=== PATIENT | male | born 1985 | race Caucasian/White ===

== ENCOUNTER 2021-10-16 17:55 | Emergency (ER) | payer OTHER, SELFPAY ==
--- NOTE | ~2021-10-16 | XR_ITS ---
EXAMINATION: XR CHEST CLINICAL INFORMATION: Shortness of breath COMPARISON: 06/07/2011 TECHNIQUE: 2 views of the chest were obtained. FINDINGS: Opacity in the right midlung laterally. Consistent with infiltrate. I suspect this is the right upper lobe. There is also mild left basilar opacity which may be atelectasis or infiltrate. There is no effusion. Low lung volumes. The cardiac silhouette is within normal limits. XR/XR chest 2V IMPRESSION: Right midlung infiltrate and atelectasis or infiltrate at the left base.
[2021-10-16 18:01] VITALS: BP 111/81; PULSE 116; RESP 18; TEMP 36.6; O2SAT 95; BMI 32.2
--- NOTE | 2021-10-16 18:37 | ECG_ITS ---
Test Reason : CHEST PAIN Blood Pressure : / mmHG Vent. Rate : 099 BPM Atrial Rate : 099 BPM P-R Int : 116 ms QRS Dur : 088 ms QT Int : 398 ms P-R-T Axes : 054 043 057 degrees QTc Int : 510 ms Normal sinus rhythm Nonspecific T wave abnormality Prolonged QT Abnormal ECG No previous ECGs available Referred By: Deondre Ford Electronically Signed By:SARKIS MORROW
--- NOTE | 2021-10-16 18:37 | ED.GENADULT ---
HPI - General Adult General Chief complaint: General Medical Stated complaint: whole body swollen/SOB Time Seen by Provider: 10/16/21 18:16 Source: patient Mode of arrival: ambulatory Limitations: no limitations History of Present Illness HPI narrative: 36-year-old male who presents emergency department for evaluation chest pain, shortness of breath, dyspnea on exertion x2 weeks. The patient has a history of injection drug use. States that 3 weeks prior he was seen at [facility] and diagnosed with multiple abscesses these and cellulitis in his arms and legs. He states that he did not get started on antibiotics at that time but 1 week later (2 weeks prior to evaluation) he was at [facility] for detox from heroin and cocaine use. He states that he was initially started on Bactrim for 1 week and then changed to his 2nd antibiotic which she cannot recall the name of. He believes that the abscesses and cellulitis have improved but have not resolved completely. He states however over the past 2 weeks he has noted shortness of breath at rest, orthopnea, paroxysmal nocturnal and dyspnea and dyspnea on exertion. He states that the dyspnea on exertion has gotten worse to the point where he can only walk 10 to 20 ft before he gets winded. Over the past 2 days he has had intermittent left-sided chest pain. He states that the chest pain can come on at rest or with exertion. The pain is a sharp pain that will last minutes. He states that yesterday he did developed an episodes of subjective fever and chills. He denied rhinorrhea, sore throat, cough, nausea, vomiting, diarrhea, abdominal pain, change in his urinary frequency, dysuria, dark stools or bloody stools. The patient states that he is not used injection drugs for 3 weeks. He states that he is currently receiving methadone 205 mg daily. Prior to starting on methadone he was using 40 bags of heroin mixed with cocaine multiple times a day. He has not been vaccinated for COVID-19. He states that he was incarcerated for 100 days but got out of detention approximately 3 months prior. Related Data Previous Rx's Medication Instructions Recorded divalproex 500 mg tablet,delayed 1,500 mg PO .nightly 30 Days #90 10/16/21 release (Depakote) tab furosemide 40 mg tablet (Lasix) 60 mg PO DAILY 30 Days #45 tab 10/16/21 Allergies Allergy/AdvReac Type Severity Reaction Status Date / Time No Known Allergies Allergy Unverified 04/02/20 15:46 Review of Systems Review of Systems: Yes all other systems are reviewed and are negative [facility] Past Medical History [facility] Narrative: Past medical history: Injection drug use (heroin and cocaine). Past surgical history: None. Social history: The patient smokes 2 packs of cigarettes per day times 20 years. He occasionally drinks alcohol. He does have a history of injection drug use, he used 40 bags of heroin per day mixed with cocaine. He has not used in 3 weeks. He is currently receiving methadone 205 mg daily. He was incarcerated for 100 days and was released 3 months prior. Social History Social History Use of substances other than those prescribed or required for medical reasons: Yes Substance Use Type: Heroin Substance Use Frequency: Daily Last Used Substance: Days (ago) Any prior treatment program specific to substance use: Yes Advance Directives: No Advance Directives Information Provided: No Physical Exam ED Vital Signs: Vital Signs - 24 hr 10/16/21 18:01 Temperature 97.8 F Pulse Rate 116 H Respiratory Rate 18 Blood Pressure 111/81 Pulse Oximetry 95 BMI result Body Mass Index 32.2 Const Other: Very pleasant and cooperative male patient, he is awake and alert, he answers all questions appropriately, he does not appear to be in distress. [facility] Head: Yes normal to inspection, Yes normocephalic and Yes atraumatic Ears: external ears normal General nose exam: Normal external nose present Face and sinus: Yes normal facial exam Mouth: Normal oral and palatal mucosa present Throat: Yes posterior oropharynx normal Eyes General: appearance normal, both eyes and all related structures Pupils: Equal, round and reactive pupils present Neck Neck: Yes normal visual inspection, Yes no lymphadenopathy, Yes trachea midline and Yes supple Chest Chest palpation & inspection: normal inspection of the chest and tenderness costochondral junction (Anterior chest) Resp Effort & Inspection: normal respiratory effort and able to speak in complete sentences Auscultation: clear to auscultation bilaterally Cardio Rate: regular rate Rhythm: regular rhythm Heart sounds: S1 normal heart sound present, S2 normal heart sound present and no murmurs GI Inspection: Yes normal to inspection Palpation (GI): Soft to palpation, nontender and no guarding Auscultation: normal bowel sounds General: Yes no CVA tenderness Back/Spine/Pelvis Back: no CVA tenderness Skin General skin exam: no rashes or lesions noted Neuro Cranial nerves: Yes CN's II-XII intact bilaterally and Yes Equal, round and reactive pupils present Cognition (Neuro): normal cognition Motor exam (neuro): 5/5 motor strength present throughout Extrem Other: The patient does have nonpitting swelling of his hands and forearms with multiple track deal, there are multiple small areas erythema on his upper and lower extremities which are not warm to the touch. The patient does have 1+ pitting edema to his lower extremities which are bilaterally symmetric. Psych Appearance: grossly normal Speech and movement: Normal speech and movement present Affect: normal affect Attitude: cooperative Thought process: Normal thought process present Thought content: Normal thought content present Course Course Course Narrative: 36-year-old male with a history of injection drug use (heroin and cocaine) who was recently in detox and is currently on methadone 205 mg daily, he has not used injection drugs for 3 weeks, who presents to the emergency department for evaluation of shortness of breath, orthopnea, dyspnea on exertion, swelling of his lower extremities x2 weeks and subjective fever and chills x1 day. Vital signs did reveal an elevated pulse of 116 otherwise were unremarkable. Patient does have upper extremity swelling but I think that this is due to venous compromise from his injection drug use. He does have 1+ pitting edema of his lower extremities. Patient's symptoms are concerning and the differential includes but is not limited to cardiomyopathy, coronary artery disease, liver failure, renal failure, infectious process. I did order a CBC, CMP, BMP, CRP, ESR, CK, lipase, lactic acid, troponin, urinalysis, blood cultures x2. I will obtain an EKG and a chest x-ray. 212: Laboratory evaluation: WBC low 4500, anemia with an H&H of 11.3 and 34.5 with a normal MCV. CMP was normal. BMP was normal. Elevated CK 491, CRP elevated 1.10, ESR normal 7. Twelve EKG was unremarkable. Radiology evaluation: Chest x-ray was interpreted by the radiologist as follows: Right midlung infiltrate and atelectasis or infiltrate at the left base. I do not think that this is consistent with pneumonia and is probably more consistent with mild pulmonary edema based on his presentation. The patient is most likely fluid overloaded, he may also have cardiomyopathy and will probably need further workup as an outpatient . The patient will be started on furosemide 60 mg once a day. I did discuss the use of this medication and how toachieve a negative fluid balance. He will be referred to our on-call african history professor as well. Patient also needs a refill of his Depakote. Medical Decision Making Lab Data Result diagrams: 10/16/21 19:09 10/16/21 19:09 Labs: Lab Results 10/16/21 10/16/21 10/16/21 Range/Units 19:09 19:09 19:09 WBC 4.5 L (4.8-10.8) X10*3/uL RBC 3.94 L (4.60-5.80) X10*6/uL Hgb 11.3 L (14.0-18.0) g/dl Hct 34.5 L (42.0-52.0) % MCV 87.6 (80.0-98.0) fL MCH 28.7 (27.0-33.0) pg MCHC 32.8 (31.0-36.0) g/dl RDW 14.1 (11.0-16.0) % Plt Count 183 (160-400) X10*3/uL MPV 9.7 (9.4-12.4) fL Immature Gran % (Auto) 0.2 (0.0-0.4) % Neut % (Auto) 56.6 (45-73) % Lymph % (Auto) 30.2 (20-40) % [place] % (Auto) 8.6 (2-11) % Eos % (Auto) 4.2 H (0-4) % Baso % (Auto) 0.2 (0-2) % Lymph # (Auto) 1.4 (1.2-4.9) X10*3/uL [place] # (Auto) 0.4 (0.1-1.2) X10*3/uL Eos # (Auto) 0.2 (0.0-0.4) X10*3/uL Baso # (Auto) 0.0 (0.0-0.2) X10*3/uL Abs Immat Gran (auto) 0.01 (0.00-0.03) X10*3/uL Absolute Neuts (auto) 2.6 (2.0-8.3) x10*3/uL Absolute Nucleated RBC 0.000 (0.0-0.012) X10*3/uL Nucleated RBC % (auto) 0.0 (0.0-0.2) /100WBC ESR (0-15) MM/HR Sodium 143 (135-145) mmol/L Potassium 4.1 (3.3-5.1) mmol/L Chloride 108 (96-108) mmol/L Carbon Dioxide 25 (22-29) mmol/L Anion Gap 14 (12-20) BUN 16 (9-16) mg/dL Creatinine 0.97 (0.5-1.4) mg/dL Estim Creat Clear Calc 136.1 Estimated GFR > 60 Random Glucose 86 (60-115) mg/dL Lactic Acid 1.6 (0.5-2.0) mmol/L Calcium 9.1 (8.4-10.2) mg/dL Total Bilirubin 0.5 (0.0-1.0) mg/dL AST 28 (5-37) U/L ALT 29 (0-40) U/L Alkaline Phosphatase 58 (39-117) U/L Total Creatine Kinase (38-174) U/L Troponin I High Sens (<3.5-35.0) ng/L C-Reactive Protein (< or = 0.50) mg/dL B-Natriuretic Peptide (<100) pg/mL Total Protein 7.0 (6.5-8.0) g/dL Albumin 4.0 (3.5-5.0) g/dL Lipase 30 (8-78) U/L 10/16/21 10/16/21 10/16/21 Range/Units 19:09 19:09 19:09 WBC (4.8-10.8) X10*3/uL RBC (4.60-5.80) X10*6/uL Hgb (14.0-18.0) g/dl Hct (42.0-52.0) % MCV (80.0-98.0) fL MCH (27.0-33.0) pg MCHC (31.0-36.0) g/dl RDW (11.0-16.0) % Plt Count (160-400) X10*3/uL MPV (9.4-12.4) fL Immature Gran % (Auto) (0.0-0.4) % Neut % (Auto) (45-73) % Lymph % (Auto) (20-40) % Ciales % (Auto) (2-11) % Eos % (Auto) (0-4) % Baso % (Auto) (0-2) % Lymph # (Auto) (1.2-4.9) X10*3/uL [place] # (Auto) (0.1-1.2) X10*3/uL Eos # (Auto) (0.0-0.4) X10*3/uL Baso # (Auto) (0.0-0.2) X10*3/uL Abs Immat Gran (auto) (0.00-0.03) X10*3/uL Absolute Neuts (auto) (2.0-8.3) x10*3/uL Absolute Nucleated RBC (0.0-0.012) X10*3/uL Nucleated RBC % (auto) (0.0-0.2) /100WBC ESR 7 (0-15) MM/HR Sodium (135-145) mmol/L Potassium (3.3-5.1) mmol/L Chloride (96-108) mmol/L Carbon Dioxide (22-29) mmol/L Anion Gap (12-20) BUN (9-16) mg/dL Creatinine (0.5-1.4) mg/dL Estim Creat Clear Calc Estimated GFR Random Glucose (60-115) mg/dL Lactic Acid (0.5-2.0) mmol/L Calcium (8.4-10.2) mg/dL Total Bilirubin (0.0-1.0) mg/dL AST (5-37) U/L ALT (0-40) U/L Alkaline Phosphatase (39-117) U/L Total Creatine Kinase 491 H (38-174) U/L Troponin I High Sens < 3.5 (<3.5-35.0) ng/L C-Reactive Protein 1.10 H (< or = 0.50) mg/dL B-Natriuretic Peptide 84 (<100) pg/mL Total Protein (6.5-8.0) g/dL Albumin (3.5-5.0) g/dL Lipase (8-78) U/L Discharge Plan Discharge Clinical Impression: Acute dyspnea, Orthopnea, Edema, peripheral Fluid overload Qualifiers: Hypervolemia type: unspecified Qualified Code(s): E87.70 - Fluid overload, unspecified Patient Disposition: Home, Self-Care Instructions: Pulmonary Edema (ED), Fluid Restriction (ED) Additional Instructions: Your white blood cell count was slightly low at 4500. You are anemic with your hemoglobin being 11.3 and 34.5. Otherwise your laboratory evaluation was unremarkable. Your EKG was normal. Your chest x-ray did reveal some slight fluid in your lungs and this is consistent with you having too much fluid on your body being fluid overloaded. I am starting you on a water pill/diuretic called Lasix (furosemide) Take Lasix 60 mg once a day in the morning. This medication will make you pee for about 6 hours. The goal is to get you to pee out more fluid than you or drinking and you will lose fluid weight. Weigh yourself every morning and the goal is to lose 3-4 lb of fluid weight over the next 1-2 weeks. Please follow-up with a primary care doctor. Please call our on-call african history professor, Dr. Valencia's office on Monday morning to try to make a follow-up appointment in 1-2 weeks. I think that you need an echocardiogram of your heart as an outpatient to further evaluate your symptoms of shortness of breath shortness of breath with exertion and shortness of breath when you lie down flat. Follow-up with your doctor in 2 days. Please return to the emergency department if your symptoms get worse or if you develop any symptoms that are concerning to you. Prescriptions: New furosemide [Lasix] 40 mg tablet 60 mg PO DAILY 30 Days Qty: 45 0RF divalproex [Depakote] 500 mg tablet,delayed release (DR/EC) 1,500 mg PO .nightly 30 Days Qty: 90 0RF
[2021-10-16 19:16] LABS: MANUAL DIFF FLAG NO
[2021-10-16 19:21] LABS: Basophils Percent Auto 0.2 % (0-2); Eosinophils Absolute Auto 0.2 X10*3/uL (0.0-0.4); Eosinophils Percent Auto 4.2 % (0-4); Hematocrit 34.5 % (42.0-52.0); Hemoglobin 11.3 g/dl (14.0-18.0); Imm Gran Abs Auto 0.01 X10*3/uL (0.00-0.03); Imm Gran Pct Auto 0.2 % (0.0-0.4); Lymphocytes Absolute Auto 1.4 X10*3/uL (1.2-4.9); Lymphocytes Percent Auto 30.2 % (20-40); Mean Corpuscular HGB Conc 32.8 g/dl (31.0-36.0); Mean Corpuscular Hemoglobin 28.7 pg (27.0-33.0); Mean Corpuscular Volume 87.6 fL (80.0-98.0); Mean Platelet Volume 9.7 fL (9.4-12.4); Monocytes Absolute Auto 0.4 X10*3/uL (0.1-1.2); Monocytes Percent Auto 8.6 % (2-11); Neutrophils Absolute Auto 2.6 x10*3/uL (2.0-8.3); Neutrophils Percent Auto 56.6 % (45-73); Platelet Count 183 X10*3/uL (160-400); Red Blood Count 3.94 X10*6/uL (4.60-5.80); Red Cell Distribution Width 14.1 % (11.0-16.0); White Blood Count 4.5 X10*3/uL (4.8-10.8)
[2021-10-16 19:32] LABS: Lactic Acid 1.6 mmol/L (0.5-2.0)
[2021-10-16 19:38] LABS: Alanine Aminotransferase 29 U/L (0-40); Alkaline Phosphatase 58 U/L (39-117); Anion Gap 14 (12-20); Aspartate Amino Transferase 28 U/L (5-37); Bilirubin Total 0.5 mg/dL (0.0-1.0); Blood Urea Nitrogen 16 mg/dL (9-16); Calcium 9.1 mg/dL (8.4-10.2); Carbon Dioxide 25 mmol/L (22-29); Chloride 108 mmol/L (96-108); Creatinine Clr Calc Pharmacy 136.1; Estimated Glomerular Filt Rate > 60; Glucose Random 86 mg/dL (60-115); Lipase 30 U/L (8-78); Potassium 4.1 mmol/L (3.3-5.1); Sodium 143 mmol/L (135-145)
[2021-10-16 19:41] LABS: B Type Natriuretic Peptide 84 pg/mL (<100); Troponin-I High Sensitivity < 3.5 ng/L (<3.5-35.0)
[2021-10-16 20:04] LABS: Erythrocyte Sedimentation Rate 7 MM/HR (0-15)
== END 2021-10-16 21:45 | disposition home or self-care (01) ==
PROVIDERS: Emergency Provider Emergency Medicine Emergency Medical Services
DX: R06.02 Shortness of breath (principal); R06.01 Orthopnea; E87.70 Fluid overload, unspecified; R60.0 Localized edema; F11.20 Opioid dependence, uncomplicated; F17.200 Nicotine dependence, unspecified, uncomplicated
CPT/HCPCS: 36415; 71046; 80053; 82550; 83605; 83690; 83880; 84484; 85025; 85652; 86140; 87040; 93005; 99284

== ENCOUNTER 2023-01-27 09:07 | Outpatient (REF) | payer OTHER, SELFPAY ==
[2023-01-27 11:25] LABS: MANUAL DIFF FLAG NO
[2023-01-27 11:42] LABS: Basophils Percent Auto 0.7 % (0-2); Eosinophils Absolute Auto 0.2 X10*3/uL (0.0-0.4); Eosinophils Percent Auto 3.8 % (0-4); Hematocrit 41.3 % (42.0-52.0); Hemoglobin 13.7 g/dl (14.0-18.0); Imm Gran Abs Auto 0.01 X10*3/uL (0.00-0.03); Imm Gran Pct Auto 0.2 % (0.0-0.4); Lymphocytes Absolute Auto 2.3 X10*3/uL (1.2-4.9); Lymphocytes Percent Auto 55.5 % (20-40); Mean Corpuscular HGB Conc 33.2 g/dl (31.0-36.0); Mean Corpuscular Hemoglobin 30.7 pg (27.0-33.0); Mean Corpuscular Volume 92.6 fL (80.0-98.0); Mean Platelet Volume 10.6 fL (9.4-12.4); Monocytes Absolute Auto 0.4 X10*3/uL (0.1-1.2); Monocytes Percent Auto 9.1 % (2-11); Neutrophils Absolute Auto 1.3 x10*3/uL (2.0-8.3); Neutrophils Percent Auto 30.7 % (45-73); Platelet Count 150 X10*3/uL (160-400); Red Blood Count 4.46 X10*6/uL (4.60-5.80); Red Cell Distribution Width 13.2 % (11.0-16.0); White Blood Count 4.2 X10*3/uL (4.8-10.8)
[2023-01-27 13:04] LABS: Alanine Aminotransferase 56 U/L (0-40); Albumin Level 3.7 g/dL (3.5-5.0); Alkaline Phosphatase 133 U/L (39-117); Anion Gap 12 (12-20); Aspartate Amino Transferase 60 U/L (5-37); Bilirubin Total 0.7 mg/dL (0.0-1.0); Blood Urea Nitrogen 12 mg/dL (9-16); Carbon Dioxide 26 mmol/L (22-29); Chloride 106 mmol/L (96-108); Cholesterol 228 mg/dL; Estimated Glomerular Filt Rate > 60; Glucose Random 81 mg/dL (60-115); HDL Cholesterol 49 mg/dL; LDL Cholesterol Calculated 108 mg/dl; Potassium 4.2 mmol/L (3.3-5.1); Sodium 140 mmol/L (135-145); Total Protein 7.2 g/dL (6.5-8.0); Triglycerides 358 mg/dL
[2023-01-27 13:08] LABS: Thyroid Stimulating Hormone 3.26 uIU/mL (0.32-4.0)
== END 2023-01-27 09:08 | disposition home or self-care (01) ==
LOC: HO.HHCL 09:07
PROVIDERS: Visit Provider Internal Medicine
DX: Z00.00 Encounter for general adult medical examination without abnormal findings (principal); E66.9 Obesity, unspecified; F31.9 Bipolar disorder, unspecified; I10 Essential (primary) hypertension; Z72.0 Tobacco use; Z79.891 Long term (current) use of opiate analgesic
CPT/HCPCS: 36415; 80053; 80061; 84443; 85025

== ENCOUNTER 2023-02-13 13:10 | Outpatient (AMB) | payer OTHER, SELFPAY ==
[2023-02-13 13:22] VITALS: BP 117/78; PULSE 92; BMI 37.0
--- NOTE | 2023-02-13 13:22 | MHC.OFFVIS ---
Intake Vital Signs 02/13/23 13:22 Height 5 ft 11 in Weight 265 lb BMI 37.0 BP 117/78 Blood Pressure Location Rt brachial Position Sitting Pulse 92 Intake Visit Reasons: Sebaceous cyst of scalp Intake Note: Patient here for cyst on X2 on vertex scalp and Lt post scalp. Have been present for years. Recently noticed all have been enlarging. Finance Specialist Required: No Accompanied by: Self / Same As Patient Allergies No Known Allergies Allergy (Unverified 02/13/23 13:25) HPI HPI Comments History of Present Illness Details Patient presents for evaluation of 3 scalp once. He has had these indeterminate time. They are increasing in size, become more symptomatic. He wished to have them excised. Unfortunately, because were complications he cannot stay to have them removed today. No other issues or complaints. Chart was reviewed and patient evaluated [facility] Medical History (Updated 02/13/23 @ 13:27 by TANYA Kincaid) Large tonsils Surgical History (Updated 02/13/23 @ 13:34 by Esvin Warren MD) History of placement of ear tubes Social History (Updated 02/13/23 @ 13:28 by TANYA Kincaid) Alcohol intake: current Alcohol intake frequency: does not drink Tobacco use type: Cigarette Cigarettes Per Day: 20 Substance Use Type: Heroin Physical Exam Vital Signs: Last Vital Signs Pulse 92 02/13/23 13:22 BP 117/78 02/13/23 13:22 BMI result Body Mass Index 37.0 HEENT Other: Two large and 1 medium size scalp Aaliyah the 1st 2 vomiting the vertex measuring approximately 2 x 2 cm each of the 2 x 1 cm involving the left parietal area. No cervical periclavicular axillary adenopathy Assessment & Plan Assessment & Plan (1) Pilar cyst of scalp: Code(s): L72.11 - Pilar cyst Plan Risks, benefits, alternatives of excision of scalp Aaliyah x3 were reviewed with the patient included but not limited to bleeding, infection, recurrence, numbness, pain, scarring the patient wishes to proceed. Arrangements will be made for a day which is convenient for him. All questions were answered. Coding Level of Care Code New Pt Level 3 (87037) Diagnoses Pilar cyst of scalp L72.11
== END 2023-02-13 13:37 | disposition home or self-care (01) ==
PROVIDERS: PCP Internal Medicine; Referring Provider Internal Medicine; Visit Provider Surgery
DX: L72.11 Pilar cyst (principal)
CPT/HCPCS: 99203

== ENCOUNTER → 2023-02-13 13:10 | Outpatient (BNVA) | payer OTHER, SELFPAY | PROVIDERS: PCP Internal Medicine; Referring Provider Internal Medicine; Visit Provider Surgery | DX: L72.11 Pilar cyst (principal) | CPT/HCPCS: 99202 ==

== ENCOUNTER 2023-02-21 08:34 | Outpatient (REF) | payer OTHER, SELFPAY | END 2023-02-21 08:35 | disposition home or self-care (01) | LOC: HO.LNP 08:34 | PROVIDERS: PCP Internal Medicine; Visit Provider Surgery | DX: L72.11 Pilar cyst (principal); Z79.899 Other long term (current) drug therapy | CPT/HCPCS: 11423; 88304; 99212 ==

== ENCOUNTER 2023-02-21 08:34 | Outpatient (AMB) | payer OTHER, SELFPAY ==
--- NOTE | 2023-02-21 08:37 | MHC.OFFVIS ---
Intake Vital Signs 02/21/23 09:00 Height 5 ft 11 in Weight 267 lb BMI 37.2 BP 121/65 Blood Pressure Location Rt brachial Position Sitting Pulse 92 Intake Visit Reasons: Scalp cysts X3 Controls Project Engineer Required: No Accompanied by: Self / Same As Patient Allergies No Known Allergies Allergy (Unverified 02/21/23 09:01) Medication List - Last Reconciled 02/21/23 by Esvin Warren MD divalproex (Depakote) 1,500 mg (3 x 500 mg) PO .nightly 30 days furosemide (Lasix) 60 mg (1.5 x 40 mg) PO DAILY 30 days methadone (Methadone Intensol) 2.5 mg PO Q6H HPI HPI Comments History of Present Illness Details Patient presents for excision of his scalp once. Patient was seen last week. Risks, benefits, alternatives of scalp Aaliyah excision x2 were reviewed the patient included but not limited to bleeding, infection, recurrence, numbness, pain, scarring the patient was to proceed. All questions were answered. [facility] Medical History (Updated 02/13/23 @ 13:27 by TANYA Kincaid) Large tonsils Surgical History (Updated 02/13/23 @ 13:34 by Esvin Warren MD) History of placement of ear tubes Social History (Updated 02/13/23 @ 13:28 by TANYA Kincaid) Alcohol intake: current Alcohol intake frequency: does not drink Tobacco use type: Cigarette Cigarettes Per Day: 20 Substance Use Type: Heroin Office Procedures Excision Details: After appropriate positioning, and pre marking the 2 scalp wounds 1 of the the vertex 1 left parietal area, patient underwent Betadine prep 1% lidocaine injection. Each cyst was approach with longitudinal incision and uneventful enucleation of the cyst. Specimens were sent to pathology together for evaluation. Each wound was irrigated, secured hemostasis, and closed using interrupted 2-0 Prolene followed by bacitracin. Patient tolerated procedure well. Cyst of vertex measured approximately3 x 2 cm. Left parietal measured approximately 2 x 1 Cm. Patient tolerated procedure well. 40266-[id number] scalp/neck/hands/feet/genitalia 2.1cm-3cm Procedure code (CPT) selection complete Office Meds lidocaine-epinephrine 1 %-1:100,000 Performing Provider: Esvin Warren MD Administered by: Esvin Warren MD on 02/21/23 08:59 Dose Route Admin Location Lot Number Expiration Date [employer] Fabricator Apprentice 10 mL Infiltration Assessment & Plan Assessment & Plan (1) Pilar cyst of scalp: Code(s): L72.11 - Pilar cyst Plan: Patient has been given local instructions including ice to wounds intermittently today and tomorrow, may shower tomorrow, Motrin p.r.n. and will see me as directed or p.r.n.. Orders: Orders AMB Excision Today L72.11 - Pilar cyst Coding Level of Care Code Est Pt Level 3 (80238) Diagnoses Pilar cyst of scalp L72.11 CPT Codes Scalp/Neck/Hands/Feet/Genetalia - CPT: 48217-Rdkcvglp scalp/neck/hands/feet/genitalia 2.1cm-3cm ([id number])
[2023-02-21 09:00] VITALS: BP 121/65; PULSE 92; BMI 37.2
== END 2023-02-21 09:00 | disposition home or self-care (01) ==
PROVIDERS: PCP Internal Medicine; Visit Provider Surgery
DX: L72.11 Pilar cyst (principal)
CPT/HCPCS: 11423; 11424; 99213

== ENCOUNTER 2023-03-02 08:51 | Outpatient (AMB) | payer OTHER, SELFPAY ==
[2023-03-02 09:06] VITALS: BP 121/78; PULSE 82; BMI 37.5
--- NOTE | 2023-03-02 09:06 | A.OFFVIS_ITS ---
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 4 sutures removed without incident. Incisions healing well. Patient advised he is okay to wash with soap and water. [employer] Driver Required: No Accompanied by: Self / Same As Patient Allergies No Known Allergies Allergy (Unverified 03/02/23 09:08) HPI HPI Comments History of Present Illness Details Patient presents for follow-up status post scalp Aaliyah excision x2. He has no wound issues or complaints. Pathology was benign. [facility] Medical History Large tonsils Surgical History History of placement of ear tubes Social History Alcohol intake: current Alcohol intake frequency: does not drink Tobacco use type: Cigarette Cigarettes Per Day: 20 Substance Use Type: Heroin Physical Exam Vital Signs: Last Vital Signs Pulse 82 03/02/23 09:06 BP 121/78 03/02/23 09:06 BMI result Body Mass Index 37.5 HEENT Other: Wounds well healed. Sutures uneventfully removed. Assessment & Plan Assessment & Plan (1) Pilar cyst of scalp: Code(s): L72.11 - Pilar cyst Plan Patient has been given local instructions, and will follow-up p.r.n. Coding Level of Care Code Global (59262) Diagnoses Pilar cyst of scalp L72.11
== END 2023-03-02 09:13 | disposition home or self-care (01) ==
LOC: HO.HGS 08:51
PROVIDERS: PCP Internal Medicine; Visit Provider Surgery
DX: L72.11 Pilar cyst (principal)
CPT/HCPCS: 99024

== ENCOUNTER → 2023-03-02 08:51 | Outpatient (BNVA) | payer OTHER, SELFPAY | PROVIDERS: PCP Internal Medicine; Visit Provider Surgery ==

== ENCOUNTER 2023-05-22 09:26 | Outpatient (REF) | payer OTHER, SELFPAY | END 2023-05-22 09:27 | disposition home or self-care (01) | LOC: HO.LNP 09:26 | PROVIDERS: PCP Internal Medicine; Visit Provider Surgery | DX: L72.11 Pilar cyst (principal) | CPT/HCPCS: 11423; 88304 ==

== ENCOUNTER 2023-05-22 09:26 | Outpatient (AMB) | payer OTHER, SELFPAY ==
[2023-05-22 09:33] VITALS: BP 123/83; PULSE 83; BMI 32.2
--- NOTE | 2023-05-22 09:33 | MHC.OFFVIS ---
Intake Vital Signs 05/22/23 09:33 Height 5 ft 11 in Weight 231 lb BMI 32.2 BP 123/83 Blood Pressure Location Rt brachial Position Sitting Pulse 83 Intake Visit Reasons: Pilar cyst of scalp Intake Note: patient c/o new cyst on Lt post scalp. States it has been enlarging, bothersome. Reports two prior cysts on scalp healed well. Cyanide Pot Hardener Required: No Accompanied by: Self / Same As Patient Allergies No Known Allergies Allergy (Unverified 05/22/23 09:35) Medication List - Last Reconciled 05/22/23 by Esvin Warren MD divalproex (Depakote) 1,500 mg (3 x 500 mg) PO .nightly 30 days furosemide (Lasix) 60 mg (1.5 x 40 mg) PO DAILY 30 days methadone (Methadone Intensol) 2.5 mg PO Q6H HPI HPI Comments History of Present Illness Details Patient presents with a new left occipital Pilar cyst/scalp Aaliyah. It is increasing in size, becoming more symptomatic. He wished to have it excised. He has had these in the past the excised by me. Chart was reviewed patient evaluated [facility] Medical History Large tonsils Surgical History History of placement of ear tubes Social History Alcohol intake: current Alcohol intake frequency: does not drink Tobacco use type: Cigarette Cigarettes Per Day: 20 Substance Use Type: Heroin Physical Exam Vital Signs: Last Vital Signs Pulse 83 05/22/23 09:33 BP 123/83 05/22/23 09:33 BMI result Body Mass Index 32.2 HEENT Other: Approximately 3 x 2 cm left occipital Pilar cyst Office Procedures Excision Details: Risks, benefits, alternatives of left occipital Pilar cyst reviewed the patient and included but not limited to bleeding, infection, recurrence, numbness, pain, scarring the patient wished to proceed. All questions were answered. Consent was signed. After appropriate positioning, the patient's left occipital area was prepped and draped in usual sterile fashion. Using a longitudinal incision over the Pilar cyst in question which measured approximately 3 x 2 cm. Was uneventfully enucleated. Specimen sent to pathology. Wounds irrigated, secured hemostasis, and closed using interrupted 2-0 Prolene suture followed by bacitracin. Patient tolerated procedure well. 47415-[id number] scalp/neck/hands/feet/genitalia 2.1cm-3cm Procedure code (CPT) selection complete Office Meds lidocaine 1 %-epinephrine 1:100,000 injection solution Performing Provider: Esvin Warren MD Performing Location: [facility] [place] [facility] Administered by: Esvin Warren MD on 05/22/23 09:47 Dose Route Admin Location Dispensed Lot Number Expiration Date [facility] Cash Applications Analyst 10 mL Infiltration 10 mL Assessment & Plan Assessment & Plan (1) Pilar cyst of scalp: Code(s): L72.11 - Pilar cyst Plan: Patient has been given local instructions including ice to the wound periodically today and tomorrow, bacitracin to the wound, may shower tomorrow, and will see me as directed or p.r.n. Orders: Orders AMB Excision Today L72.11 - Pilar cyst Coding Level of Care Code Tele Est Pt Level 4 (62268) Diagnoses Pilar cyst of scalp L72.11 CPT Codes Scalp/Neck/Hands/Feet/Genetalia - CPT: 91156-Xiwbkrrh scalp/neck/hands/feet/genitalia 2.1cm-3cm ([id number])
== END 2023-05-22 09:48 | disposition home or self-care (01) ==
PROVIDERS: PCP Internal Medicine; Visit Provider Surgery
DX: L72.11 Pilar cyst (principal)
CPT/HCPCS: 11423

== ENCOUNTER 2023-05-22 10:22 | Outpatient (REF) | payer OTHER, SELFPAY ==
[2023-05-22 11:17] LABS: MANUAL DIFF FLAG NO
[2023-05-22 11:36] LABS: Basophils Percent Auto 0.6 % (0-2); Eosinophils Absolute Auto 0.1 X10*3/uL (0.0-0.4); Eosinophils Percent Auto 2.8 % (0-4); Hematocrit 47.4 % (42.0-52.0); Hemoglobin 16.1 g/dl (14.0-18.0); Lymphocytes Absolute Auto 2.4 X10*3/uL (1.2-4.9); Lymphocytes Percent Auto 51.8 % (20-40); Mean Corpuscular Hemoglobin 29.6 pg (27.0-33.0); Mean Corpuscular Volume 87.1 fL (80.0-98.0); Mean Platelet Volume 11.3 fL (9.4-12.4); Monocytes Absolute Auto 0.2 X10*3/uL (0.1-1.2); Monocytes Percent Auto 4.5 % (2-11); Neutrophils Absolute Auto 1.9 x10*3/uL (2.0-8.3); Neutrophils Percent Auto 40.3 % (45-73); Platelet Count 172 X10*3/uL (160-400); Red Blood Count 5.44 X10*6/uL (4.60-5.80); Red Cell Distribution Width 12.8 % (11.0-16.0); White Blood Count 4.7 X10*3/uL (4.8-10.8)
[2023-05-22 12:16] LABS: Cholesterol 233 mg/dL (<200); HDL Cholesterol 44 mg/dL (>40); LDL Cholesterol Calculated 147 mg/dL (<100); Triglycerides 211 mg/dL (<150)
[2023-05-22 12:18] LABS: Valproate 12.5 mcg/mL (50.0-100.0)
[2023-05-24 17:28] LABS: HCV Log PCR <1.18 NOT DETECTED Log IU/mL (NOT DETECTED); HepC Viral Load <15 NOT DETECTED IU/mL (NOT DETECTED)
== END 2023-05-22 10:23 | disposition home or self-care (01) ==
LOC: HO.HHCL 10:22
PROVIDERS: Visit Provider Internal Medicine
DX: B18.2 Chronic viral hepatitis C (principal); D69.6 Thrombocytopenia, unspecified; I10 Essential (primary) hypertension; L72.3 Sebaceous cyst; R74.01 Elevation of levels of liver transaminase levels; Z72.0 Tobacco use
CPT/HCPCS: 36415; 80061; 80164; 85025; 87522

== ENCOUNTER 2023-06-05 08:47 | Outpatient (AMB) | payer OTHER, SELFPAY ==
--- NOTE | 2023-06-05 08:49 | A.OFFVIS_ITS ---
Intake Vital Signs 06/05/23 08:57 Weight 227 lb BP 125/81 Blood Pressure Location Rt brachial Position Sitting Pulse 81 Intake Visit Reasons: S/p exc pilar cyst/ scalp Intake Note: Patient here s/p exc Lt post scalp on 05-22-23. Reports incision healing well. Denies bleeding, oozing, pain. Two sutures removed without incident. Product Development Ecologist Required: No Accompanied by: Self / Same As Patient Allergies No Known Allergies Allergy (Unverified 06/05/23 08:57) HPI HPI Comments History of Present Illness Details Patient presents for follow-up. He has no wound issues or complaints. Pathology is benign. [facility] Medical History Large tonsils Surgical History History of placement of ear tubes Social History Alcohol intake: current Alcohol intake frequency: does not drink Tobacco use type: Cigarette Cigarettes Per Day: 20 Substance Use Type: Heroin Physical Exam Vital Signs: Last Vital Signs Pulse 81 06/05/23 08:57 BP 125/81 06/05/23 08:57 HEENT Other: Wound clean dry and intact. Sutures uneventfully removed. Assessment & Plan Assessment & Plan (1) Pilar cyst of scalp: Code(s): L72.11 - Pilar cyst Plan Patient has been given local wound instructions, and will follow-up p.r.n. Coding Level of Care Code Global (37612) Diagnoses Pilar cyst of scalp L72.11
[2023-06-05 08:57] VITALS: BP 125/81; PULSE 81
== END 2023-06-05 09:06 | disposition home or self-care (01) ==
PROVIDERS: PCP Internal Medicine; Visit Provider Surgery
DX: L72.11 Pilar cyst (principal)
CPT/HCPCS: 99024

== ENCOUNTER → 2023-06-05 08:47 | Outpatient (BNVA) | payer OTHER, SELFPAY | PROVIDERS: PCP Internal Medicine; Visit Provider Surgery ==

== ENCOUNTER 2023-07-29 10:44 | Emergency (ER) | payer OTHER, SELFPAY ==
[2023-07-29 11:16] VITALS: BP 135/81; PULSE 95; RESP 18; TEMP 36.4; O2SAT 96; BMI 33.4
--- OUTSIDE RECORDS SUMMARY | 2023-07-29 11:35 | XMS_ITS | Continuity of Care Document ---
Author Name Unknown Organization [facility] ter Address [address] [place] [address]- Care Team Providers Care Food Stand Manager Name Role Phone Almita Munoz MD Primary Care Physician [place] [facility] [place] - 06/02/[address] [address]- Encounter Diagnosis Shortness of breath(Final) - 06/01/22 Shortness of breath at rest(Final) - 06/01/22 Discharge Disposition: A-D/C Skilled Nursing, Nursing Home, or Retirement Fac Attending Physician: Jimbo Harrison MD Admitting Physician: Jimbo Harrison MD Referring Physician: Not on Staff, Referring MD Allergies, Adverse Reactions, Alerts Substance Reaction Severity Status codeine Active amoxicillin Persistent Severe Active penicillin Persistent Severe Active Fish 1 Persistent Severe Active 1THROAT CLOSES AND PT BREAKS OUT IN HIVES Medications divalproex sodium 500 mg oral tablet, extended release 3 tablet = 1,500 mg, By Mouth, Daily at bedtime, # 90 tablet, 1 Refills, Maintenance, 10/28/21 22:43:00 EDT, ER Tablet, [facility]- , Partial fill upon patient request if the prescription is for a schedule II opioid drug., 178,... Start Date: 10/28/21 Status: Ordered Flomax 0.4 mg oral capsule 0.4 mg, 1, capsule, By Mouth, Daily at bedtime, # 30 capsule, Refills 0, Tot. Refills 0, Maintenance, 05/21/22 10:03:00 EDT, Do Not Route, Partial fill upon patient request if the prescription is fora schedule II opioid drug. Start Date: 05/21/22 Status: Ordered gabapentin 400 mg oral capsule 400 mg, 1, capsule, By Mouth, 3 times a day, # 90 capsule, Refills 1, Tot. Refills 1, Maintenance, 10/28/21 22:44:00 EDT, Route to Pharmacy Electronically, [facility]-, Partial fill upon patient request if the prescription is f... Start Date: 10/28/21 Status: Ordered hydrOXYzine pamoate 50 mg oral capsule 1 capsule = 50 mg, By Mouth, Every 8 hours, PRN Anxiety, # 60 capsule, 1 Refills, Maintenance, 10/28/21 22:44:00 EDT, Capsule, [facility]-, Partial fill upon patient request if the prescription is for a schedule II opioid drug.... Start Date: 10/28/21 Status: Ordered Methadone = 215 mg, By Mouth, Daily, 0 Refills, Maintenance, 10/28/21 22:44:00 EDT, Tablet, Partial fill uponpatient request if the prescription is for a schedule II opioid drug. Start Date: 10/28/21 Status: Ordered Remeron 15 mg oral tablet 1 tablet = 15 mg, By Mouth, Daily at bedtime, # 30 tablet, 0 Refills, Maintenance, 05/17/22 15:06:00 EDT, Tablet, Partial fill upon patient request if the prescription is for a schedule II opioid drug. Start Date: 05/17/22 Status: Ordered Senna 8.6 mg oral tablet 8.6 mg, 1, tablet, By Mouth, Daily, PRN, # 20 tablet, Refills 0, Tot. Refills 0, Soft Stop, as needed for constipation, 05/21/22 10:02:00 EDT, Do Not Route, Tablet, Partial fill upon patient request if the prescription is for a schedule II opioid drug. Start Date: 05/21/22 Status: Ordered Problem List Condition Confirmation Course Effective Dates Status Health St atus Informant Chills Confirmed Active Active intravenous drug use Confirmed Active Obese class II Confirmed Active Tattoo reaction Confirmed Active Results Radiology Reports * Exam Date Time Procedure Performing Provider Status 06/02/22 1:[address] Angio Chest Stupkelsey , Luiz; Auth (V erified) Notes: (CT Angio Chest) Reason For Exam: PE suspected, Intermediate prob, positive D-dimer,;Other: RESULT: CT Angio Chest EXAMINATION: CT Angio Chest INDICATION: Headache. Shortness of breath. TECHNIQUE: Spiral CTA of the chest was performed after rapid IV contrast administration without cardiac gating, triggered by an HERNÁN on the main pulmonary artery. Images are formatted in multiple planes using 2-D multiplanar and 3-D maximum intensity projection. 100 cc of Omnipaque 300 was administered intravenously. Weight-based protocol using automatic tube modulation was used to optimize exposure parameters. CTDIvol Body: 11.90 mGy, DLP Body: 731 mGy*cm. COMPARISONS: Chest radiograph 06/01/2022. ANGIOGRAPHIC FINDINGS: Evaluation is significantly limited by motion artifact. No central or proximal pulmonary embolism. No large segmental pulmonary embolism. Normal caliber pulmonary arteries. No acute aortic abnormality seen on this study performed without cardiac gating. NON-ANGIOGRAPHIC FINDINGS: Crm Marketing Analyst View Findings, Lines and Tubes: None. Trachea and Airways: Patent without evidence of tracheal or endobronchial lesion. Lungs and Pleura: Suboptimal evaluation of the lungs due to expiration and motion. Atelectasis in the right lung base and lingula. No effusion or pneumothorax. Mediastinum and aide: No mass or hematoma. No mediastinal or hilar lymphadenopathy. No esophageal abnormality. Heart: Heart is normal in size. No pericardial effusion. Chest Wall Soft Tissues: Normal. Diaphragm and upper abdomen: No acute abnormality. Bones: No acute abnormality. IMPRESSION: Motion degraded exam. No evidence of central, proximal, or large segmental pulmonary embolism. I have personally reviewed the images and I agree with this report. WSN: [id number] Ordering Physician: Cleopatra Casas Dictated By: Pee Mckeon MD Dictated Date/Time: 06/02/22 7:20 am Reviewed By: Patrice Orozco MD Signed By: Patrice Orozco MD Signed Date/Time: 06/02/22 7:25 am Transcribed By: VICTORINA Transcribed Date/Time: 06/02/22 2:12 am * Exam Date Time Procedure Performing Provider Status 06/01/22 9:23 PM Chest Portable Alysa Sidhu ; Auth (Verified) Notes: (Chest Portable) Reason For Exam: Chest Pain;Other: RESULT: Chest Portable Chest Portable Hx of Present Illness: sob, headache, nausea, 6 10 non reproducable cp, rcnt admission at [place] for rhabdo, lower abd pain, hard for pt to initiate urination; Reason: Other:; Chest Pain; Clinical Question(s): CHF COMPARISON: X-ray from 04/24/2019 FINDINGS: LINES AND TUBES: None. LUNGS AND PLEURA: Clear lungs. Normal pulmonary vascularity. No pleural effusion. No pneumothorax. HEART, MEDIASTINUM AND AIDE: Heart is normal in size. Normal mediastinal and hilar contour. BONES AND SOFT TISSUES: No acute abnormality. IMPRESSION: No acute abnormality. WSN: [id number] Ordering Physician: Alma Hernandez Dictated By: Patrice Jacobs MD Dictated Date/Time: 06/01/22 9:27 pm Reviewed By: Patrice Jacobs MD Signed By: Patrice Jacobs MD Signed Date/Time: 06/01/22 9:27 pm Transcribed By: VICTORINA Transcribed Date/Time: 06/01/22 9:25 pm Vital Signs Most recent to oldest [Reference Range]: 1 2 3 Oxygen Saturation [94-100 %] 98 % (06/02/22 3:58 AM) 93 % *L* (06/02/22 2:11 AM) 100 % (06/01/22 11:51 PM) Pulse Rate [55-90 bpm] 98 bpm *H* (06/02/22 3:58 AM) 101 bpm *H* (06/02/22 2:11 AM) 86 bpm (06/01/22 11:51 PM) Blood Pressure [90-138/55-84 mm Hg] 129/84mm Hg (06/02/22 3:58 AM) 129/72mm Hg (06/02/22 2:11 AM) 140/97mm Hg *H* (06/01/22 11:51 PM) Respiratory Rate [16-30 br/min] 18 br/min (06/02/22 3:58 AM) 12 br/min *L* (06/02/22 2:11 AM) 17 br/min (06/01/22 11:51 PM) Temperature [96.8-100.4 DegF] 98.2 DegF (06/02/22 2:11 AM) 98.4 DegF (06/01/22 8:22 PM) Mode of Delivery (Oxygen) Room air (06/02/22 3:58 AM) Room air (06/02/22 2:11 AM) Room air (06/01/22 11:51 PM) Blood pressure sites Arm, right (06/02/22 2:11 AM) Arm, left (06/01/22 11:51 PM) Arm, right (06/01/22 10:25 PM) Temperature Route Oral (06/02/22 2:11 AM) Oral (06/01/22 8:22 PM) Social History Social History Type Response Smoking Status Former smoker, quit more than 30 days ago; Other: QUIT 2 YRS AGO; entered on: 05/17/22 Sex EKG study * Event Display: EKG Authored Date: [id number] Note * Cleopatra Chand: PERFORM Event Display: Patient Education Leaflets Authored Date: [id number] Chest Wall Pain: Costochondritis ?? [id number] Chest Wall Pain: Costochondritis The chest pain that you have had today is caused by costochondritis. This condition is caused by aninflammation of the cartilage joining your ribs to your breastbone. It's not caused by heart or lung problems. Your healthcare team has made sure that the chest pain you feel is not from a life threatening cause of chest pain such as heart attack, collapsed lung, blood clot in the lung, tear in theaorta, or esophageal rupture. The inflammation may have been brought on by a blow to the chest, lifting heavy objects, intense exercise, or an illness that made you cough and sneeze a lot. It??often occurs??during times of emotional stress.??It can be painful, but it's not dangerous. It usually goes away in 1 to 2 weeks. But it may happen again. Rarely, a more serious condition may cause symptomssimilar to costochondritis. That???s why it???s important to watch for the warning signs listed below. Home care Follow these guidelines when caring for yourself at home: ??? If you feel that emotional stress is a cause of your condition, try to figure out the sources of that stress. It may not be obvious. Learn ways to deal with the stress in your life. This can include regular exercise, muscle relaxation, meditation, or simply taking time out for yourself. ??? You may use acetaminophen, ibuprofen, or naproxen to control pain, unless another pain medicine was prescribed. If you have liver or kidney disease or ever had a stomach ulcer, talk with your healthcare provider before using these medicines. ???You can also help ease pain by using a hot, wet compress or heating pad. Use this with or without amedicated skin cream that helps relieves pain. ??? Do stretching exercise as advised by your provider. Typically rest is beneficial for the first few days. Avoid strenuous activity that worsens the pain. ??? Take any prescribed medicines as directed. ?? Follow-up care Follow up with your healthcare provider, or as advised. Call 911 Call 911 if any of these occur: ??? A change in the type of pain which feels different, becomes more serious, lasts longer, or spreads into your shoulder, arm, neck, jaw, or back ??? Fainting ??? Shortness of breath or trouble breathing ?? When to get medical advice Call your healthcare provider right away if any of these occur: ??? Pain gets worse when you breathe ??? Weakness or dizziness ??? Cough with dark-colored sputum (phlegm) or blood ??? Fever of 100.4??F (38??C) or higher, or as advised by your provider ?? Last Reviewed Date: 2021 ?? 1801-6396 [employer]. All rights reserved. This information is not intended as a substitute for professional medical care. Always follow your healthcare professional's instructions. ?? Portable XR Chest Views * [employer]owers[employer] , CIS S: TRANSCRIBE Reynaldo SLADE, Patrice Whalen: VERIFY Event Display: Result: Authored Date: Chest Portable Hx of Present Illness: sob, headache, nausea, 6 10 non reproducable cp, rcnt admission at [place] for rhabdo, lower abd pain, hard for pt to initiate urination; Reason: Other:; Chest Pain; Clinical Question(s): CHF COMPARISON: X-ray from 04/24/2019 FINDINGS: LINES AND TUBES: None. LUNGS AND PLEURA: Clear lungs. Normal pulmonary vascularity. No pleural effusion. No pneumothorax. HEART, MEDIASTINUM AND AIDE: Heart is normal in size. Normal mediastinal and hilar contour. BONES AND SOFT TISSUES: No acute abnormality. IMPRESSION: No acute abnormality. WSN: [id number] Ordering Physician: Alma Hernandez Dictated By: Patrice Jacobs MD Dictated Date/Time: 06/01/22 9:27 pm Reviewed By: Patrice Jacobs MD Signed By: Patrice Jacobs MD Signed Date/Time: 06/01/22 9:27 pm Transcribed By: VICTORINA Transcribed Date/Time: 06/01/22 9:25 pm CTA Chest vessels W contrast IV * [employer] , CIS S: TRANSCRIBE Pee Mckeon MD L: SIGN Patrice Orozco MD A: VERIFY Event Display: Result: Authored Date: [id number] EXAMINATION: CT Angio Chest INDICATION: Headache. Shortness of breath. TECHNIQUE: Spiral CTA of the chest was performed after rapid IV contrast administration without cardiac gating, triggered by an HERNÁN on the main pulmonary artery. Images are formatted in multiple planes using 2-D multiplanar and 3-D maximum intensity projection. 100 cc of Omnipaque 300 was administered intravenously. Weight-based protocol using automatic tube modulation was used to optimize exposure parameters. CTDIvol Body: 11.90 mGy, DLP Body: 731 mGy*cm. COMPARISONS: Chest radiograph 06/01/2022. ANGIOGRAPHIC FINDINGS: Evaluation is significantly limited by motion artifact. No central or proximal pulmonary embolism. No large segmental pulmonary embolism. Normal caliber pulmonary arteries. No acute aortic abnormality seen on this study performed without cardiac gating. NON-ANGIOGRAPHIC FINDINGS: Crm Marketing Analyst View Findings, Lines and Tubes: None. Trachea and Airways: Patent without evidence of tracheal or endobronchial lesion. Lungs and Pleura: Suboptimal evaluation of the lungs due to expiration and motion. Atelectasis in the right lung base and lingula. No effusion or pneumothorax. Mediastinum and aide: No mass or hematoma. No mediastinal or hilar lymphadenopathy. No esophageal abnormality. Heart: Heart is normal in size. No pericardial effusion. Chest Wall Soft Tissues: Normal. Diaphragm and upper abdomen: No acute abnormality. Bones: No acute abnormality. IMPRESSION: Motion degraded exam. No evidence of central, proximal, or large segmental pulmonary embolism. I have personally reviewed the images and I agree with this report. WSN: [id number] Ordering Physician: Cleopatra Casas Dictated By: Linda SLADE Edgar L Dictated Date/Time: 06/02/22 7:20 am Reviewed By: Patrice Orozco MD Signed By: Patrice Orozco MD Signed Date/Time: 06/02/22 7:25 am Transcribed By: VICTORINA Transcribed Date/Time: 06/02/22 2:12 am Patient Care team information Care Team Personnel Name: Rogelio Downing RN Position: [facility] RN Member Role: Primary Care Nurse Name: Elisa Harris RN Position: [facility] MR W/ Merge Member Role: Primary Care Nurse Name: Mazin Doe RN Position: [facility] RN Member Role: Primary Care Nurse Name: Imelda Bhatia Position: [facility] RN Member Role: Primary Care Nurse Name: Melissa Finn RN Position: [facility] RN Member Role: Primary Care Nurse Name: Almita Munoz MD Position: [facility] Primary Care Physician Member Role: PCP Address: Address: [address] [place] [address] Adult & Pediatric Medicine [address] Name: Ana Nelson Position: [facility] ED TA [facility] Member Role: Degreaser Name: Cleopatra Chand Position: [facility] Associate Professional Member Role: ED Physician Maintenance Foreman Address: Address: [address] [place] [address] Name: Jimbo Harrison MD Position: [facility] ED Medicine MD Member Role: ED Attending Physician Address: Address: [address] [place] [address] Name: Gemini Ovalle RN Position: [facility] ED RN W/OE and Tasks Member Role: Patient Care Provider Care Team Related Persons Name: JACQUELINE MERCER Address: home [address] [place], [place] Name: JACQUELINE OBANDO Address: home [address] [place], [place] Name: PATRICIA HUSSEIN Address: home [address] [place], [place] Name: LISA VERDUZCO Address: [address] [address]
--- OUTSIDE RECORDS SUMMARY | 2023-07-29 11:35 | XMS_ITS | Continuity of Care Document ---
Author Name Unknown Organization [facility] Address [address] [place] [address]- Care Team Providers Care Recruiting Associate Name Role Phone Almita Munoz MD Primary Care Physician Encounter [facility] [place] [facility] [id number] Date(s): 12/08/20 - 01/07/21 [facility] [address] [place], [place] [address] Attending Physician: Lorrie Barrios Admitting Physician: Admtr, Lorrie Referring Physician: Admtr, Ar8 Allergies, Adverse Reactions, Alerts Substance Reaction Severity Status codeine Active amoxicillin Persistent Severe Active penicillin Persistent Severe Active Medications Citrate of Magnesia 8.85% oral liquid 150 mL = 8.725 Gm, By Mouth, Once, can repeat in 24 hours if no response, # 300 mL, 0 Refills, SoftStop, 06/10/19 14:20:16 EST, Liquid, 150 mL By Mouth Once,Instr:can repeat in 24 hours if no response Start Date: 06/10/19 Status: Ordered divalproex sodium 500 mg oral tablet, extended release 2 tablet, By Mouth, Daily, # 60 tablet, 0 Refills, Maintenance, 12/21/20 12:12:00 EDT, [id number], 178, cm, 11/24/20 16:43:00 EDT, Height, 105.7, kg, 06/30/20 15:05:00 EST, Dry Weight Start Date: 12/21/20 Status: Ordered ibuprofen 600 mg oral tablet Refills 0, Maintenance, 06/04/19 10:29:08 EST Start Date: 06/04/19 Status: Ordered Methadone Liquid = 95 mg, By Mouth, Daily, 0 Refills, Maintenance, 10/05/17 0:15:36 EDT, Solution Start Date: 10/05/17 Status: Ordered Problem List Condition Effective Dates Status Health Status Inform ant Chills(Confirmed) Active Active intravenous drug use(Confirmed) Active Tattoo reaction(Confirmed) Active Social History Social History Type Response Smoking Status 10 or more cigarette s (1/2 pack or more)/day in last 30 days entered on: 04/24/19 Sex
--- OUTSIDE RECORDS SUMMARY | 2023-07-29 11:35 | XMS_ITS | Continuity of Care Document ---
Author Name Unknown Organization [facility] Address [address] [place] [address]- Care Team Providers Care Family Welfare Social Work Professor Name Role Phone Alexander SLADE, Almita Primary Care Physician [phone] Encounter [facility] [place] Date(s): 11/26/20 - 12/26/20 [facility] [address] [place], [place] [address] Allergies, Adverse Reactions, Alerts Substance Reaction Severity [...] tablet, 0 Refills, Maintenance, 12/21/20 12:12:00 EDT, [id number], 178, cm, 11/24/20 16:43:00 EDT, Height, 105.7, [...]
--- OUTSIDE RECORDS SUMMARY | 2023-07-29 11:35 | XMS_ITS | Continuity of Care Document ---
Author Name Unknown Organization [facility] Address [address] [place] [address]- Care Team Providers Care Generation Mechanic Helper Name Role Phone Alexander SLADE, Almita Primary Care Physician En[place] [facility] [place] Date(s): 03/20/21 - 04/19/21 [facility] [address] [place] [address]- Attending Physician: Oscar Desai MD Referring Physician: Almita Munoz MD Allergies, Adverse Reactions, Alerts Substance Reaction Severity Status codeine Active amoxicillin Persistent Severe Active penicillin Persistent Severe Active Medications divalproex sodium 500 mg oral tablet, extended release 2 tablet, By Mouth, Daily, # 60 tablet, 0 Refills, Maintenance, 12/21/20 12:12:00 EDT, [facility], 178, cm, 11/24/20 16:43:00 EDT, Height, 105.7, kg, 06/30/20 15:05:00 EST, Dry Weight Start Date: 12/21/20 Status: Ordered Methadone Liquid = 95 mg, [...]
--- OUTSIDE RECORDS SUMMARY | 2023-07-29 11:35 | XMS_ITS | Continuity of Care Document ---
Author Name Unknown Organization [facility] Address [address] [place] [address]- Care Team Providers Care Health Spa Manager Name Role Phone Almita Munoz MD Primary Care Physician [phone] Encounter [facility] [place] [facility] Date(s): 06/26/20 - 07/03/20 [facility] [address] [place] [address]- Encounter Diagnosis Tattoo reaction(Discharge Diagnosis) - 06/26/20 Attending Physician: Jammie Ren MD Referring Physician: Almita Munoz MD Allergies, [...] sodium 500 mg oral tablet, extended release TAKE 2 TABLETS BY MOUTH DAILY AT BEDTIME Start Date: 07/01/20 Status: Ordered divalproex sodium 500 mg oral tablet, extended release 2 tablet = 1,000 mg, By Mouth, Daily, # 60 tablet, 1 Refills, Maintenance, 07/01/20 11:56:00 EST, ER Tablet, [facility]/pharmacy #[id number], Partial fill upon patient request if the prescription is for a schedule II opioid drug., 178, cm, 06/30/20 15:00:00 EST, H... Start Date: 07/01/20 Status: Ordered hydrocortisone 2.5% topical ointment 1 application, Topically, 3 times a day, for 7 days, # 28.35 Gm, 1 Refills, Acute 07/10/20 15:09:00EST, 06/26/20 15:09:00 EST, Ointment, [facility]/pharmacy #[id number], Partial fill upon patient request if the prescription is for a schedule II opioid drug., 1 ap... Start Date: 06/26/20 Stop Date: 07/10/20 Status: Ordered ibuprofen 600 mg oral tablet Refills 0, Maintenance, 06/04/19 10:29:08 EST Start Date: 06/04/19 Status: Ordered Methadone Liquid = 95 mg, By Mouth, Daily, 0 Refills, Maintenance, 10/05/17 0:15:36 EDT, Solution Start Date: 10/05/17 Status: Ordered Problem List Condition Effective Dates Status Health Status Inform ant Tattoo reaction(Confirmed) Active Diagnosis Diagnosis Type Effective Dates Health Status Cl inical Service Informant Tattoo reaction Discharge Diagnosis 06/26/20 Vital Signs Most recent to oldest [Reference Range]: 1 Height 178 cm (06/26/20 2:53 PM) Weight 105.6 kg (06/26/20 2:53 PM) Oxygen Saturation [94-100 %] 95 % (06/26/20 2:53 PM) Pulse Rate [55-90 bpm] 77 bpm (06/26/20 2:53 PM) Body Mass Index [18.5-24.99] 33.33 *>HHI* (06/26/20 2:53 PM) Blood Pressure [90-138/55-84 mm Hg] 125/ 80mm Hg (06/26/20 2:53 PM) Respiratory Rate [16-30 br/min] 18 br/mi n (06/26/20 2:53 PM) Temperature [96.8-100.4 DegF] 96.9 DegF (06/26/20 2:53 PM) Mode of Delivery (Oxygen) Room air (06/26/20 2:53 PM) Blood pressure sites Arm, left (06/26/20 2:53 PM) Temperature Route Temporal (06/26/20 2:53 PM) Dry Weight 105.6 kg (06/26/20 2:53 PM) Social History Social History Type Response Smoking Status 10 or more cigarette s (1/2 pack or more)/day in last 30 days entered on: 04/24/19 Sex
--- OUTSIDE RECORDS SUMMARY | 2023-07-29 11:35 | XMS_ITS | Continuity of Care Document ---
Author Name Unknown Organization [facility] Address [address] [place] [address]- Care Team Providers Care Teacher Vocal Name Role Phone Alexander SLADE, Almita Primary Care Physician Encounter [facility] Date(s): 05/17/22 - 05/21/[address] [address] Discharge Disposition: A-D/C Halfway, Detention, or [facility] Attending Physician: Ash SLADE, Anika Admitting Physician: Vladimir SLADE, Anne Whalen Referring Physician: Marcial SLADE, Vickey Whalen Allergies, Adverse Reactions, Alerts Substance Reaction Severity Status codeine Active amoxicillin Persistent Severe Active penicillin Persistent Severe Active Fish 1 Persistent Severe Active 1THROAT CLOSES AND PT BREAKS OUT IN HIVES Medications divalproex sodium 500 mg oral tablet, extended release 3 tablet = 1,500 mg, By Mouth, Daily at bedtime, # 90 tablet, 1 Refills, Maintenance, 10/28/21 22:43:00 EDT, ER Tablet, [facility]- [id number], Partial fill upon patient request if the [...] gabapentin 400 mg oral capsule 400 mg, Capsule, By Mouth, 05/21/22 15:00:00 EDT Start Date: 05/21/22 Stop Date: 05/21/22 Status: Completed gabapentin 400 mg oral capsule 400 mg, 1, capsule, By Mouth, 3 times a day, # 90 capsule, Refills 1, Tot. Refills 1, Maintenance, 10/28/21 22:44:00 EDT, Route to Pharmacy Electronically, [facility]-, Partial fill upon patient request if the prescription is f... Start Date: 10/28/21 Status: Ordered hydrOXYzine pamoate 50 mg oral capsule 1 capsule = 50 mg, By Mouth, Every 8 hours, PRN Anxiety, # 60 capsule, 1 Refills, Maintenance, 10/28/21 22:44:00 EDT, Capsule, [facility]-, Partial fill upon patient request if the [...] Confirmed Active Tattoo reaction Confirmed Active Results Orders for Microbiology Reports Name Date Urine Culture (URINE CULTURE) 05/16/22 Microbiology Reports TEST:Urine Culture STATUS:Auth (Verified) BODY SITE: SOURCE:CLEAN COLLECTED DATE/TIME:05/16/22 9:01 PM Urine Culture SPECIMEN DESCRIPTION : CLEAN CATCH (URINE) SPECIAL REQUESTS : NONE CULTURE : <10,000 COL/ML REPORT STATUS : FINAL 05/18/2022 Vital Signs Most recent to oldest [Reference Range]: 1 2 3 Height 178 cm (05/21/22 2:23 PM) 178 cm (05/21/22 6:20 AM) 178 cm (05/20/22 8:02 PM) Weight 119.6 kg (05/17/22 2:40 PM) 119.5 kg (05/17/22 5:28 AM) 119.5 kg (05/17/22 12:26 AM) Oxygen Saturation [94-100 %] 92 % *L* (05/21/22:23 PM) 95 % (05/21/22 6:20 AM) 98 % (05/20/22 8:02 PM) Pulse Rate [55-90 bpm] 101 bpm 1 *H* (05/21/22 2:23 PM) 89 bpm (05/21/22 6:20 AM) 103 bpm *H* (05/20/22 8:02 PM) Body Mass Index [18.5-24.99 kg/m2] 37.75 kg/m2 *>HHI* (05/17/22 2:40 PM) 37.72 kg/m2 *>HHI* (05/17/22 5:28 AM) 37.72 kg/m2 *>HHI* (05/17/22 12:26 AM) Blood Pressure [90-138/55-84 mm Hg] 143/71mm Hg *H* (05/21/22 2:23 PM) 136/82mm Hg (05/21/22 6:20 AM) 149/73mm Hg *H* (05/20/22 8:02 PM) Respiratory Rate [16-30 br/min] 18 br/min (05/21/22 3:37 PM) 18 br/min (05/21/22 2:37 PM) 20 br/min (05/21/22 2:23 PM) Temperature [96.8-100.4 DegF] 97.7 DegF (05/21/22 2:23 PM) 97.8 DegF (05/21/22 6:20 AM) 98.5 DegF (05/20/22 8:02 PM) Liters per Minute 0 L/min (05/17/22 12:43 PM) 0 L/min (05/17/22 7:55 AM) Mode of Delivery (Oxygen) Room air (05/21/22 2:23 PM) Room air (05/21/22 6:20 AM) Room air (05/20/22 8:02 PM) Blood pressure sites Arm, left (05/21/22 2:23 PM) Arm, left (05/21/22 6:20 AM) Arm, left (05/20/22 8:02 PM) Temperature Route Oral (05/21/22 2:23 PM) Oral (05/21/22 6:20 AM) Oral (05/20/22 8:02 PM) Dry Weight 90.9 kg (05/17/22 2:40 PM) 119.5 kg (05/17/22 5:28 AM) 119.5 kg (05/17/22 12:26 AM) Weight Obtained Via Standing scale (05/17/22 2:40 PM) Dry Weight Obtained Via Patient/family s tated (05/17/22 2:40 PM) 1Result Comment: Amira informed Social History Social History Type Response Smoking Status Former smoker, quit more than 30 days ago; Other: QUIT 2 YRS AGO; entered on: 05/17/22 Sex Patient Care team information Personnel Name: Almita Munoz MD Address: Address: [address] [place] [address] Adult & Pediatric Medicine [place], [place] [address]
--- OUTSIDE RECORDS SUMMARY | 2023-07-29 11:35 | XMS_ITS | Continuity of Care Document ---
Author Name Unknown Organization [facility] ter Address [address] [place] [address]- Care Team Providers Care Kicking Machine Operator Name Role Phone Almita Munoz MD Primary Care Physician [phone] [place] [facility] [place] 04/08/21 - 04/09/[address] [address]- Discharge Disposition: A-D/C Walkout Attending Physician: Michel Weller MD Admitting Physician: Michel Weller MD Referring Physician: Not on Staff, Referring MD Allergies, Adverse Reactions, Alerts Substance Reaction Severity Status codeine Active amoxicillin Persistent Severe Active penicillin Persistent Severe Active Medications divalproex sodium 500 mg oral tablet, extended release 2 tablet, By Mouth, Daily, # 60 tablet, 0 Refills, Maintenance, 12/21/20 12:12:00 EDT, [id number], 178, cm, 11/24/20 16:43:00 EDT, Height, 105.7, kg, 06/30/20 15:05:00 EST, Dry Weight Start Date: 12/21/20 Status: Ordered Methadone Liquid = 95 mg, By Mouth, Daily, 0 Refills, Maintenance, 10/05/17 0:15:36 EDT, Solution Start Date: 10/05/17 Status: Ordered Problem List Condition Effective Dates Status Health Status Inform ant Chills(Confirmed) Active Active intravenous drug use(Confirmed) Active Tattoo reaction(Confirmed) Active Vital Signs Most recent to oldest [Reference Range]: 1 Height 178 cm (04/08/21 7:45 PM) Weight 91 kg (04/08/21 7:45 PM) Oxygen Saturation [94-100 %] 99 % (04/08/21 7:45 PM) Pulse Rate [55-90 bpm] 89 bpm (04/08/21 7:45 PM) Blood Pressure [90-138/55-84 mm Hg] 133/ 90mm Hg (04/08/21 7:45 PM) Respiratory Rate [16-30 br/min] 19 br/mi n (04/08/21 7:45 PM) Temperature [96.8-100.4 DegF] 98.1 DegF (04/08/21 7:45 PM) Mode of Delivery (Oxygen) Room air (04/08/21 7:45 PM) Blood pressure sites Arm, left (04/08/21 7:45 PM) Temperature Route Oral (04/08/21 7:45 PM) Dry Weight 91 kg (04/08/21 7:45 PM) Social History Social History Type Response Smoking Status 10 or more cigarette s (1/2 pack or more)/day in last 30 days entered on: 04/24/19 Sex
--- OUTSIDE RECORDS SUMMARY | 2023-07-29 11:35 | XMS_ITS | Continuity of Care Document ---
Author Name Unknown Organization [facility] Address [address] [place] [address]- Care Team Providers Care Inweaver Name Role Phone Almita Munoz MD Primary Care Physician [place] [facility] [place] 04/09/21 [facility] [address] [place], [place] [address] Attending Physician: Almita Munoz MD Allergies, Adverse Reactions, Alerts Substance Reaction Severity Status codeine Active amoxicillin Persistent Severe Active penicillin Persistent Severe Active Medications divalproex sodium 500 mg oral tablet, extended release 2 tablet, By Mouth, Daily, # 60 tablet, 0 Refills, Maintenance, 12/21/20 12:12:00 EDT, [facility], 178, cm, 11/24/20 16:43:00 EDT, Height, 105.7, [...]
--- OUTSIDE RECORDS SUMMARY | 2023-07-29 11:35 | XMS_ITS | Continuity of Care Document ---
Author Name Unknown Organization [facility] Address [address] [place] [address]- Care Team Providers Care Medical Equipment Technician Name Role Phone Almita Munoz MD Primary Care Physician [place] [facility] [place] 06/29/20 - 08/20/20 [facility] [address] [place], [place] [address] Attending Physician: Almita Munoz MD Allergies, [...] Refills, Maintenance, 07/01/20 11:56:00 EST, ER Tablet, [facility]/pharmacy #[id number], Partial fill upon patient request if the prescription is for a schedule II opioid drug., 178, cm, 06/30/20 15:00:00 EST, H... Start Date: 07/01/20 Status: Ordered ibuprofen 600 mg oral tablet Refills 0, Maintenance, 06/04/19 10:29:08 EST Start Date: 06/04/19 Status: Ordered Methadone Liquid = 95 mg, By Mouth, Daily, 0 Refills, Maintenance, 10/05/17 0:15:36 EDT, Solution Start Date: 10/05/17 Status: Ordered Problem List Condition Effective Dates Status Health Status Inform ant Tattoo reaction(Confirmed) Active Social History Social History Type Response Smoking Status 10 or more cigarette s (1/2 pack or more)/day in last 30 days entered on: 04/24/19 Sex
--- OUTSIDE RECORDS SUMMARY | 2023-07-29 11:35 | XMS_ITS | Continuity of Care Document ---
Author Name Unknown Organization [facility] ter Address [address] [place] [address]- Care Team Providers Care Platform Material Handler Manager Name Role Phone Almita Munoz MD Primary Care Physician [phone] [place] [facility] [place] - 02/06/[address] [address]- Discharge Disposition: A-D/C Walkout Attending Physician: Not on Staff, Attending MD Admitting Physician: Not on Staff, Admitting MD Referring Physician: Not on Staff, Referring [...] Refills, Maintenance, 12/21/20 12:12:00 EDT, [facility], 178, cm, 11/24/20 16:43:00 EDT, Height, 105.7, [...]
--- OUTSIDE RECORDS SUMMARY | 2023-07-29 11:35 | XMS_ITS | Continuity of Care Document ---
Author Name Unknown Organization [facility] Address [address] [place] [address]- Care Team Providers Care Varnish Mixer Name Role Phone Alexander SLADE, Almita Primary Care Physician Encounter [facility] [place] Date(s): 11/24/20 - 01/07/21 [facility] [address] [place], [place] [address] Attending Physician: Almita Munoz MD Allergies, Adverse [...] tablet, 0 Refills, Maintenance, 12/21/20 12:12:00 EDT, [facility], 178, cm, 11/24/20 16:43:00 EDT, Height, 105.7, [...]
--- OUTSIDE RECORDS SUMMARY | 2023-07-29 11:35 | XMS_ITS | Continuity of Care Document ---
Author Name Unknown Organization [facility] Address [address] [place] [address] ve [address] [place] [address]- Care Team Providers Care Biophysics Scientist Name Role Phone Alexander SLADE, Almita Primary Care Physician [phone] [place] [facility] [place] 07/06/20 - 08/28/[address] [place] [address]- Attending Physician: Brain Patel MD Referring Physician: Almita Munoz MD Allergies, [...] Refills, Maintenance, 07/01/20 11:56:00 EST, ER Tablet, [facility]/pharmacy #[id number], Partial fill upon patient request if the [...]
--- OUTSIDE RECORDS SUMMARY | 2023-07-29 11:35 | XMS_ITS | Continuity of Care Document ---
Author Name Unknown Organization [facility] Address [address] [place] [address] [address] [place] [address]- Care Team Providers Care Malthouse Laborer Name Role Phone Almita Munoz MD Primary Care Physician [place] [facility] [place] Date(s[place] 07/29/20 - 08/28/[address] [place] [address]- Attending Physician: Lorrie Barrios Admitting Physician: Admtr, [...] Refills, Maintenance, 07/01/20 11:56:00 EST, ER Tablet, [facility]/pharmacy #[id number], Partial fill upon patient request if the [...]
--- OUTSIDE RECORDS SUMMARY | 2023-07-29 11:35 | XMS_ITS | Continuity of Care Document ---
Author Name Unknown Organization [facility] Address [address] [place] [address]- Care Team Providers Care Product Support Specialist Name Role Phone Almita Munoz MD Primary Care Physician [phone] [place] [facility] [place] - 07/25/19 [facility] [address] [place] [address]- [facility] Attending Physician: Not on Staff, Attending MD Allergies, Adverse Reactions, Alerts Substance Reaction [...] no response Start Date: 06/10/19 Status: Ordered hydrOXYzine hydrochloride 25 mg oral tablet 1 tablet = 25 mg, By Mouth, 4 times a day, PRN for anxiety, # 40 tablet, 0 Refills, Maintenance, 06/04/19 10:29:01 EST, Tablet Start Date: 06/04/19 Status: Ordered ibuprofen 600 mg oral tablet Refills 0, Maintenance, 06/04/19 10:29:08 EST Start Date: 06/04/19 Status: Ordered Methadone Liquid = 95 mg, By Mouth, Daily, 0 Refills, Maintenance, 10/05/17 0:15:36 EDT, Solution Start Date: 10/05/17 Status: Ordered OXcarbazepine 300 mg oral tablet 600 mg, 2, tablet, By Mouth, 2 times a day, # 120 tablet, Refills 0, Maintenance, 06/04/19 10:29:04EST Start Date: 06/04/19 Status: Ordered Social History Social History Type Response Smoking Status 10 or more cigarette s (1/2 pack or more)/day in last 30 days entered on: 04/24/19 Sex
--- OUTSIDE RECORDS SUMMARY | 2023-07-29 11:35 | XMS_ITS | Continuity of Care Document ---
Author Name Unknown Organization [facility] Address [address] [place] [address]- Care Team Providers Care Motion And Time Study Teacher Name Role Phone Almita Munoz MD Primary Care Physician Encounter [facility] [place] Date(s): 06/30/20 - 07/30/20 [facility] [address] [place], [place] [address] Attending Physician: Admtr, Lorrie Admitting Physician: Admtr, Ar8 Referring Physician: Admtr, Ar8 Allergies, Adverse Reactions, [...] Refills, Maintenance, 07/01/20 11:56:00 EST, ER Tablet, [facility]/pharmacy #[id number], Partial fill upon patient request if the [...]
--- OUTSIDE RECORDS SUMMARY | 2023-07-29 11:35 | XMS_ITS | Continuity of Care Document ---
Author Name Unknown Organization [facility] ter Address [address] [place] [address]- Care Team Providers Care Asset Specialist Name Role Phone Keo Munoz MD Primary Care Physician Encounter [facility] [place] Date(s): 03/26/21 - 03/26/[address] [address]- Discharge Disposition: A-D/C Home Attending Physician: Deepak Powell DO Admitting Physician: Deepak Powell DO Referring Physician: Not on Staff, Referring MD Allergies, Adverse Reactions, Alerts Substance Reaction Severity Status codeine Active amoxicillin Persistent Severe Active penicillin Persistent Severe Active Medications Bactrim DS 800 mg-160 mg oral tablet 1 tablet, By Mouth, 2 times a day, for 10 days, # 20 tablet, 0 Refills, Acute 04/05/21 16:23:00 EDT, 03/26/21 16:23:00 EDT, Tablet, [facility]/pharmacy #[id number], Partial fill upon patient request if the prescription is for a schedule II opioid drug., 1 tablet B... Start Date: 03/26/21 Stop Date: 04/05/21 Status: Ordered divalproex sodium 500 mg oral tablet, extended release 2 tablet, By Mouth, Daily, # 60 tablet, 0 Refills, Maintenance, 12/21/20 12:12:00 EDT, [facility], 178, cm, 11/24/20 16:43:00 EDT, Height, 105.7, kg, 06/30/20 15:05:00 EST, Dry Weight Start Date: 12/21/20 Status: Ordered Keflex monohydrate 500 mg oral capsule 1 capsule = 500 mg, By Mouth, 4 times a day, for 10 days, # 40 capsule, 0 Refills, Acute 04/05/21 16:23:00 EDT, 03/26/21 16:23:00 EDT, [facility], [id number], Partial fill upon patient request if the prescription is for a schedule II opioid drug.... Start Date: 03/26/21 Stop Date: 04/05/21 Status: Ordered Methadone Liquid = 95 mg, By Mouth, Daily, 0 Refills, Maintenance, 10/05/17 0:15:36 EDT, Solution Start Date: 10/05/17 Status: Ordered Problem List Condition Effective Dates Status Health Status Inform ant Chills(Confirmed) Active Active intravenous drug use(Confirmed) Active Tattoo reaction(Confirmed) Active Results Radiology Reports * Exam Date Time Procedure Performing Provider Status 03/26/21 4:09 PM Hand Min 3 Views Left Augustine Doae l; Auth (Verified) Notes: (Hand Min 3 Views Left) Reason For Exam: wounds from IVDU;Other: RESULT: Hand Min 3 Views Left Hand Min 3 Views Left, 3 views Hx of Present Illness: red, raised, warm rt antecubital area s p injection; currently on bactrim w no improvement; Reason: Other:; wounds from IVDU; Clinical Question(s): Osteomyelitis COMPARISON: None. FINDINGS: No fractures or foreign bodies. There is dorsal soft tissue edema. No radiopaque foreign bodies or soft tissue gas is seen. IMPRESSION: No fracture or foreign body. WSN: [id number] Ordering Physician: Hanh Castanon Dictated By: Harley Espinal MD Dictated Date/Time: 03/26/21 4:32 pm Reviewed By: Harley Espinal MD Signed By: Harley Espinal MD Signed Date/Time: 03/26/21 4:32 pm Transcribed By: CSAdriano Transcribed Date/Time: 03/26/21 4:27 pm * Exam Date Time Procedure Performing Provider Status 03/26/21 4:09 PM Elbow Min 3 Views Right Augustine Do ael; Auth (Verified) Notes: (Elbow Min 3 Views Right) Reason For Exam: right AC swelling, IVDU;Infection RESULT: Elbow Min 3 Views Right Elbow Min 3 Views Right, 3 views Hx of Present Illness: red, raised, warm, rt antecubital area s p injection; currently on bactrim wno improvement; Reason: Infection; right AC swelling, IVDU; Clinical Question(s): Foreign Body COMPARISON: None. FINDINGS: No fracture or focal osseous lesion. No arthritic changes. No joint effusion. There are edematous changes in the antecubital fossa anteriorly no radiopaque foreign bodies are seen. IMPRESSION: No fracture or foreign bodies. WSN: [id number] Ordering Physician: Hanh Castanon Dictated By: Harley Espinal MD Dictated Date/Time: 03/26/21 4:25 pm Reviewed By: Harley Espinal MD Signed By: Harley Espinal MD Signed Date/Time: 03/26/21 4:25 pm Transcribed By: VICTORINA Transcribed Date/Time: 03/26/21 4:23 pm Vital Signs Most recent to oldest [Reference Range]: 1 2 3 Height 178 cm (03/26/21 6:32 PM) 178 cm (03/26/21 5:21 PM) 178 cm (03/26/21 4:32 PM) Weight 94.7 kg (03/26/21:32 PM) 94.7 kg (03/26/21:21 PM) 94.7 kg (03/26/21 4:32 PM) Oxygen Saturation [94-100 %] 97 % (03/26/21 6:32 PM) 96 % (03/26/21:21 PM) 97 % (03/26/21 4:32 PM) Pulse Rate [55-90 bpm] 73 bpm (03/26/21 6:32 PM) 71 bpm (03/26/21:21 PM) 79 bpm (03/26/21:32 PM) Body Mass Index [18.5-24.99] 29.89 *H* (03/26/21 6:32 PM) 29.89 *H* (03/26/21:21 PM) 29.89 *H* (03/26/21 4:32 PM) Blood Pressure [90-138/55-84 mm Hg] 123/64mm Hg (03/26/21 6:32 PM) 135/72mm Hg (03/26/21 5:21 PM) 122/67mm Hg (03/26/21 4:32 PM) Respiratory Rate [16-30 br/min] 18 br/min (03/26/21:32 PM) 22 br/min (9/10/21 5:21 PM) 18 br/min (03/26/21 4:32 PM) Temperature [96.8-100.4 DegF] 97.7 DegF (03/26/21 5:21 PM) 97.5 DegF (03/26/21 2:00 PM) Mode of Delivery (Oxygen) Room air (03/26/21 5:21 PM) Room air (03/26/21 2:00 PM) Room air (03/26/21 1:56 PM) Blood pressure sites Arm, right (03/26/21 5:21 PM) Temperature Route Oral (03/26/21 5:21 PM) Oral (03/26/21 2:00 PM) Dry Weight 94.7 kg (03/26/21 6:32 PM) 94.7 kg (03/26/21 5:21 PM) 94.7 kg (03/26/21 4:32 PM) Social History Social History Type Response Smoking Status 10 or more cigarette s (1/2 pack or more)/day in last 30 days entered on: 04/24/19 Sex
--- OUTSIDE RECORDS SUMMARY | 2023-07-29 11:35 | XMS_ITS | Continuity of Care Document ---
Author Name Unknown Organization [facility] Address [address] [place] [address]- Care Team Providers Care Cytogenetics Laboratory Manager Name Role Phone Almita Munoz MD Primary Care Physician En[place] [facility] [place] Date(s): 06/18/19 - 10/16/19 [facility] [address] [place] [address]- [facility] Attending Physician: Almita Munoz MD Allergies, Adverse [...]
--- OUTSIDE RECORDS SUMMARY | 2023-07-29 11:35 | XMS_ITS | Continuity of Care Document ---
Author Name Unknown Organization [facility] Address [address] [place] [address]- Care Team Providers Care Gold Assayer Name Role Phone Almita Munoz MD Primary Care Physician [place] [facility] [place] 08/12/19 - 09/15/19 [facility] [address] [place] [address]- [facility] Attending Physician: Almita Munoz MD Allergies, Adverse [...]
--- OUTSIDE RECORDS SUMMARY | 2023-07-29 11:35 | XMS_ITS | Continuity of Care Document ---
Author Name Unknown Organization [facility] Address [address] [place] [address]- Care Team Providers Care Senior Compensation Consultant Name Role Phone Almita Munoz MD Primary Care Physician En[place] [facility] [place] Date(s): 05/28/20 - 07/08/20 [facility] [address] [place], [place] [address] Attending Physician: Almita Munoz MD [...] Refills, Maintenance, 07/01/20 11:56:00 EST, [facility], [id number], Partial fill upon patient request if the prescription is for a schedule II opioid drug., 178, cm, 06/30/20 15:00:00 EST, H... Start Date: 07/01/20 Status: Ordered hydrocortisone 2.5% topical ointment 1 application, Topically, 3 times a day, for 7 days, # 28.35 Gm, 1 Refills, Acute 07/10/20 15:09:00EST, 06/26/20 15:09:00 EST, [facility], [id number], Partial fill upon patient request [...]
--- OUTSIDE RECORDS SUMMARY | 2023-07-29 11:35 | XMS_ITS | Continuity of Care Document ---
Author Name Unknown Organization [facility] ter Address [address] [place] [address]- Care Team Providers Care Woodyard Crane Operator Name Role Phone Almita Munoz MD Primary Care Physician [place] [facility] [place](s[place] 07/01/20 - 08/02/[address] [address] Attending Physician: Almita Munoz MD Admitting Physician: Almita Munoz MD Referring Physician: Almita Munoz MD Allergies, [...] Refills, Maintenance, 07/01/20 11:56:00 EST, ER Tablet, [facility]/pharmacy #[id number], Partial fill upon patient request if the [...]
--- OUTSIDE RECORDS SUMMARY | 2023-07-29 11:35 | XMS_ITS | Continuity of Care Document ---
Author Name Unknown Organization [facility] Address [address] [place] [address]- Care Team Providers Care Egg Producer Name Role Phone Almita Munoz MD Primary Care Physician [place] [facility] [place]16[place] - 08/26/19 [facility] [address] [place] [address]- [facility] Attending Physician: Lorrie Barrios Admitting Physician: Lorrie Barrios Referring Physician: AdmtrLorrie Allergies, Adverse Reactions, Alerts Substance Reaction Severity [...]
--- OUTSIDE RECORDS SUMMARY | 2023-07-29 11:35 | XMS_ITS | Continuity of Care Document ---
Author Name Unknown Organization [facility] Address [address] [place] [address]- Care Team Providers Care Window Trimmer Name Role Phone Alexander SLADE, Almita Primary Care Physician [place] [facility] [place] 04/09/21 [facility] [address] [place], [place] [address] Attending Physician: Lorrie Barrios Admitting Physician: AdmLorrie cervantes Referring Physician: AdmtrLorrie Allergies, Adverse Reactions, Alerts Substance Reaction Severity Status codeine Active amoxicillin Persistent Severe Active penicillin Persistent Severe Active Medications divalproex sodium 500 mg oral tablet, extended release 2 tablet, By Mouth, Daily, # 60 tablet, 0 Refills, Maintenance, 12/21/20 12:12:00 EDT, [facility], 178, cm, 11/24/20 16:43:00 EDT, Height, 105.7, [...]
--- OUTSIDE RECORDS SUMMARY | 2023-07-29 11:36 | XMS_ITS | Continuity of Care Document ---
Author Name Unknown Organization [facility] Address [address] [place] [address]- Care Team Providers Care Stage Rigger Name Role Phone Alexander SLADE, Almita Primary Care Physician [place] [facility] [place] 11/27/20 - 12/27/20 [facility] [address] [place], [place] [address] Allergies, Adverse Reactions, Alerts Substance Reaction Severity [...] tablet, 0 Refills, Maintenance, 12/21/20 12:12:00 EDT, [facility] [id number], 178, cm, 11/24/20 16:43:00 EDT, Height, 105.7, [...]
--- OUTSIDE RECORDS SUMMARY | 2023-07-29 11:36 | XMS_ITS | Continuity of Care Document ---
Author Name Unknown Organization [facility] Address [address] [place] [address]- Care Team Providers Care Inclusion Special Educator Name Role Phone Almita Munoz MD Primary Care Physician Encounter [facility] [place](s[place] 09/29/21 - 09/29/[address] [address]- Discharge Disposition: A-D/C Walkout Attending Physician: Not [...] Refills, Maintenance, 12/21/20 12:12:00 EDT, [id number], 178, cm, 11/24/20 16:43:00 EDT, Height, 105.7, kg, 06/30/20 15:05:00 EST, Dry Weight Start Date: 12/21/20 Status: Ordered Methadone Liquid = 95 mg, By Mouth, Daily, 0 Refills, Maintenance, 10/05/17 0:15:36 EDT, Solution Start Date: 10/05/17 Status: Ordered Problem List Condition Effective Dates Status Health Status Inform ant Chills(Confirmed) Active Active intravenous drug use(Confirmed) Active Obese class I(Confirmed) Active Tattoo reaction(Confirmed) Active Vital Signs Most recent to oldest [Reference Range]: 1 2 3 Height 178 cm (09/29/21 3:09 PM) Weight 95.5 kg (09/29/21 3:09 PM) Oxygen Saturation [94-100 %] 98 % (09/29/21 4:40 PM) 97 % (09/29/21 3:09 PM) 96 % (09/29/21 2:28 PM) Pulse Rate [55-90 bpm] 69 bpm (09/29/21 4:40 PM) 74 bpm (09/29/21 3:09 PM) 87 bpm (09/29/21 2:28 PM) Body Mass Index [18.5-24.99] 30.14 *>HHI* (09/29/21 3:09 PM) Blood Pressure [90-138/55-84 mm Hg] 123/83mm Hg (09/29/21 4:40 PM) 134/85mm Hg (09/29/21 3:09 PM) Respiratory Rate [16-30 br/min] 16 br/min (09/29/21 3:09 PM) Temperature [96.8-100.4 DegF] 97.7 DegF (09/29/21 4:40 PM) 97.7 DegF (09/29/21 3:09 PM) Mode of Delivery (Oxygen) Room air (09/29/21 4:40 PM) Room air (09/29/21 3:09 PM) Room air (09/29/21 2:28 PM) Blood pressure sites Arm, right (09/29/21 4:40 PM) Arm, right (09/29/21 3:09 PM) Temperature Route Oral (09/29/21 4:40 PM) Oral (09/29/21 3:09 PM) Dry Weight 95.5 kg (09/29/21 3:09 PM) Weight Obtained Via Standing scale (09/29/21 3:09 PM) Dry Weight Obtained Via Standing scale (09/29/21 3:09 PM) Social History Social History Type Response Smoking Status 10 or more cigarette s (1/2 pack or more)/day in last 30 days entered on: 04/24/19 Sex
--- OUTSIDE RECORDS SUMMARY | 2023-07-29 11:36 | XMS_ITS | Continuity of Care Document ---
Author Name Unknown Organization [facility] Address [address] [place] [address]- Care Team Providers Care Waiter/Waitress Counter Name Role Phone Almita Munoz MD Primary Care Physician [phone] Encounter [facility] [place] Date(s): 09/14/20 - 10/14/20 [facility] [address] [place], [place] [address] Attending Physician: Lorrie Barrios Admitting Physician: Lorrie [...] tablet, By Mouth, Daily, # 60 tablet, 1 Refills, Maintenance, 09/07/20 9:09:00 EST, [id number], 178, cm, 06/30/20 15:00:00 EST, Height, 105.7, kg, 06/30/20 15:05:00 EST, Dry Weight Start Date: 09/07/20 Status: Ordered ibuprofen 600 mg oral tablet Refills 0, Maintenance, 06/04/19 10:29:08 EST Start Date: 06/04/19 Status: Ordered Methadone Liquid = 95 mg, By Mouth, Daily, 0 Refills, Maintenance, 10/05/17 0:15:36 EDT, Solution Start Date: 10/05/17 Status: Ordered Problem List Condition Effective Dates Status Health Status Inform ant Chills(Confirmed) Active Tattoo reaction(Confirmed) Active Social History Social History Type Response Smoking Status 10 or more cigarette s (1/2 pack or more)/day in last 30 days entered on: 04/24/19 Sex
--- OUTSIDE RECORDS SUMMARY | 2023-07-29 11:36 | XMS_ITS | Continuity of Care Document ---
Author Name Unknown Organization [facility] Address [address] [place] [address]- Care Team Providers Care Sulfide Head Operator Name Role Phone Almita Munoz MD Primary Care Physician [phone] [place] [facility] [place] 07/05/19 [facility] [address] [place] [address]- [facility] Attending Physician: Lorrie Barrios Admitting Physician: Lorrie [...]
--- OUTSIDE RECORDS SUMMARY | 2023-07-29 11:36 | XMS_ITS | Continuity of Care Document ---
Author Name Unknown Organization [facility] Address [address] [place] [address]- Care Team Providers Care Foreign Policy Officer Name Role Phone Alexander SLADE, Almita Primary Care Physician [place] [facility] [place] 04/19/21 [facility] [address] [place], [place] [address] Attending Physician: Admtr, Lorrie Admitting Physician: Admtr, Ar8 Referring Physician: Admtr, Ar8 Allergies, Adverse Reactions, Alerts Substance Reaction Severity Status codeine Active amoxicillin Persistent Severe Active penicillin Persistent Severe Active Medications divalproex sodium 500 mg oral tablet, extended release 2 tablet, By Mouth, Daily, # 60 tablet, 0 Refills, Maintenance, 12/21/20 12:12:00 EDT, [id number], 178, cm, 11/24/20 16:43:00 EDT, Height, 105.7, [...]
--- OUTSIDE RECORDS SUMMARY | 2023-07-29 11:36 | XMS_ITS | Continuity of Care Document ---
Author Name Unknown Organization [facility] Address [address] [place] [address]- Care Team Providers Care Wrapper Hand Name Role Phone Almita Munoz MD Primary Care Physician [place] [facility] [place](s): 07/01/20 - 07/08/20 [facility] [address] [place], [place] [address] Encounter Diagnosis Inguinal pain(Discharge Diagnosis) - 07/01/20 Substance use disorder(Discharge Diagnosis) - 07/01/20 Attending Physician: Almita Munoz MD Allergies, Adverse [...] Refills, Maintenance, 07/01/20 11:56:00 EST, ER Tablet, [facility]/pharmacy #[id number], Partial fill upon patient request if the [...] Dates Health Status Cl inical Service Informant Inguinal pain Discharge Diagnosis 07/01/20 Substance use disorder Discharge Diagnosis 07/01/20 Social History Social History Type Response Smoking Status 10 or more cigarette s (1/2 pack or more)/day in last 30 days entered on: 04/24/19 Sex
--- OUTSIDE RECORDS SUMMARY | 2023-07-29 11:36 | XMS_ITS | Continuity of Care Document ---
Author Name Unknown Organization [facility] Address [address] [place] [address]- Care Team Providers Care Millinery Worker Name Role Phone Almita Munoz MD Primary Care Physician [phone] En[place] [facility] [place](s): 09/14/20 - 09/21/20 [facility] [address] [place] [address]- Encounter Diagnosis Chills(Discharge Diagnosis) - 09/14/20 Sebaceous cyst(Discharge Diagnosis) - 09/14/20 Attending Physician: Almita Munoz MD Allergies, Adverse [...] tablet, 1 Refills, Maintenance, 09/07/20 9:09:00 EST, [facility] 75704, 178, cm, 06/30/20 15:00:00 EST, Height, 105.7, kg, 06/30/20 15:05:00 EST, Dry Weight Start Date: 09/07/20 Status: Ordered ibuprofen 600 mg oral tablet Refills 0, Maintenance, 06/04/19 10:29:08 EST Start Date: 06/04/19 Status: Ordered Methadone Liquid = 95 mg, By Mouth, Daily, 0 Refills, Maintenance, 10/05/17 0:15:36 EDT, Solution Start Date: 3/22/18 Status: Ordered Problem List Condition Effective Dates Status Health Status Inform ant Chills(Confirmed) Active Tattoo reaction(Confirmed) Active Diagnosis Diagnosis Type Effective Dates Health Status Cl inical Service Informant Chills Discharge Diagnosis 09/14/20 Sebaceous cyst Discharge Diagnosis 09/14/20 Social History Social History Type Response Smoking Status 10 or more cigarette s (1/2 pack or more)/day in last 30 days entered on: 04/24/19 Sex
--- OUTSIDE RECORDS SUMMARY | 2023-07-29 11:36 | XMS_ITS | Continuity of Care Document ---
Author Name Unknown Organization [facility] Address [address] [place] [address]- Care Team Providers Care Vehicle Service Agent Name Role Phone Almita Munoz MD Primary Care Physician Encounter [facility] [place] Date(s): 06/30/20 - 07/07/20 [facility] [address] [place] [address]- Encounter Diagnosis Left groin pain(Discharge Diagnosis) - 06/30/20 Attending Physician: Lloyd SLADE, Oscar Referring Physician: Almita Munoz MD Allergies, Adverse [...] Refills, Maintenance, 07/01/20 11:56:00 EST, ER Tablet, [facility]/pharmacy #[id number], Partial fill upon patient request if the prescription is for a schedule II opioid drug., 178, cm, 06/30/20 15:00:00 EST, H... Start Date: 07/01/20 Status: Ordered hydrocortisone 2.5% topical ointment 1 application, Topically, 3 times a day, for 7 days, # 28.35 Gm, 1 Refills, Acute 07/10/20 15:09:00EST, 06/26/20 15:09:00 EST, Ointment, [facility]/pharmacy #[id number], Partial fill upon patient request [...] Dates Health Status Cl inical Service Informant Left groin pain Discharge Diagnosis 06/30/20 Vital Signs Most recent to oldest [Reference Range]: 1 Height 178 cm (06/30/20 3:00 PM) Weight 105.7 kg (06/30/20 3:00 PM) Oxygen Saturation [94-100 %] 97 % (06/30/20 3:00 PM) Pulse Rate [55-90 bpm] 90 bpm (06/30/20 3:00 PM) Body Mass Index [18.5-24.99] 33.36 *>HHI* (06/30/20 3:00 PM) Blood Pressure [90-138/55-84 mm Hg] 110/ 71mm Hg (06/30/20 3:00 PM) Respiratory Rate [16-30 br/min] 16 br/mi n (06/30/20 3:00 PM) Temperature [96.8-100.4 DegF] 97.8 DegF (06/30/20 3:00 PM) Mode of Delivery (Oxygen) Room air (06/30/20 3:00 PM) Blood pressure sites Arm, right (06/30/20 3:00 PM) Temperature Route Temporal (06/30/20 3:00 PM) Dry Weight 105.7 kg (06/30/20 3:00 PM) Weight Obtained Via Standing scale (06/30/20 3:00 PM) Dry Weight Obtained Via Standing scale (06/30/20 3:00 PM) Social History Social History Type Response Smoking Status 10 or more cigarette s (1/2 pack or more)/day in last 30 days entered on: 04/24/19 Sex
--- OUTSIDE RECORDS SUMMARY | 2023-07-29 11:36 | XMS_ITS | Continuity of Care Document ---
Author Name Unknown Organization [facility] Address [address] [place] [address]- Care Team Providers Care Load Test Mechanic Name Role Phone Alexander SLADE, Almita Primary Care Physician Encounter [facility] [place] Date(s): 11/25/20 - 12/25/20 [facility] [address] [place], [place] [address] Allergies, Adverse Reactions, Alerts Substance Reaction Severity [...] tablet, 0 Refills, Maintenance, 12/21/20 12:12:00 EDT, [facility] 73743, 178, cm, 11/24/20 16:43:00 EDT, Height, 105.7, [...]
--- OUTSIDE RECORDS SUMMARY | 2023-07-29 11:36 | XMS_ITS | Continuity of Care Document ---
Author Name Unknown Organization [facility] Address [address] [place] [address]- Care Team Providers Care Probation And Parole Officer Name Role Phone Alexander SLADE, Almita Primary Care Physician [phone] Encounter [facility] [place] Date(s): 11/26/20 - 12/26/20 [facility] [address] [place], [place] [address] Allergies, Adverse Reactions, Alerts Substance [...] tablet, 0 Refills, Maintenance, 12/21/20 12:12:00 EDT, [facility] 74772, 178, cm, 11/24/20 16:43:00 EDT, Height, 105.7, [...]
--- OUTSIDE RECORDS SUMMARY | 2023-07-29 11:36 | XMS_ITS | Continuity of Care Document ---
Author Name Unknown Organization [facility] Address [address] [place] [address]- Care Team Providers Care Airplane Engineer Name Role Phone Almita Munoz MD Primary Care Physician [place] [facility] [place] Date(s): 07/21/20 - 08/20/20 [facility] [address] [place], [place] [address] Attending Physician: Lorrie Barrios Admitting [...] Refills, Maintenance, 07/01/20 11:56:00 EST, ER Tablet, [facility]/pharmacy #[id number], Partial fill upon patient request if the [...]
--- OUTSIDE RECORDS SUMMARY | 2023-07-29 11:36 | XMS_ITS | Continuity of Care Document ---
Author Name Unknown Organization [facility] Address [address] [place] [address]- Care Team Providers Care Non Cdl Driver Name Role Phone Alexander SLADE, [facility] Primary Care Physician [phone] Encounter [place] Date(s): 11/24/20 - 12/01/20 [facility] [address] [place], [place] [address] Attending Physician: Les Saucedo MD Allergies, Adverse Reactions, Alerts Substance Reaction [...] Daily, # 60 tablet, 0 Refills, Maintenance, 11/24/20 16:55:00 EDT, [facility]/pharmacy#[id number], 178, cm, 11/24/20 16:43:00 EDT, Height, 105.7, kg, 06/30/20 15:05:00 EST, Dry Weight Start Date: 11/24/20 Stop Date: 12/24/20 Status: Ordered ibuprofen 600 mg oral tablet [...] oldest [Reference Range]: 1 Height 178 cm (11/24/20 4:43 PM) Weight 106.6 kg (11/24/20 4:43 PM) Oxygen Saturation [94-100 %] 93 % *L* (11/24/20 4:43 PM) Pulse Rate [55-90 bpm] 74 bpm (11/24/20 4:43 PM) Body Mass Index [18.5-24.99] 33.64 *>HHI* (11/24/20 4:43 PM) Blood Pressure [90-138/55-84 mm Hg] 100/ 60mm Hg (11/24/20 4:43 PM) Temperature [96.8-100.4 DegF] 98.1 DegF (11/24/20 4:43 PM) Mode of Delivery (Oxygen) Room air (11/24/20 4:43 PM) Blood pressure sites Arm, left (11/24/20 4:43 PM) Temperature Route Temporal (11/24/20 4:43 PM) Weight Obtained Via Standing scale (11/24/20 4:43 PM) Social History Social History Type Response Smoking Status 10 or more cigarette s (1/2 pack or more)/day in last 30 days entered on: 04/24/19 Sex
[2023-07-29 11:43] LABS: MANUAL DIFF FLAG NO
[2023-07-29 11:45] LABS: Basophils Percent Auto 0.5 % (0-2); Eosinophils Absolute Auto 0.1 X10*3/uL (0.0-0.4); Eosinophils Percent Auto 1.9 % (0-4); Hematocrit 42.3 % (42.0-52.0); Imm Gran Abs Auto 0.01 X10*3/uL (0.00-0.03); Imm Gran Pct Auto 0.2 % (0.0-0.4); Lymphocytes Absolute Auto 1.4 X10*3/uL (1.2-4.9); Lymphocytes Percent Auto 24.5 % (20-40); Mean Corpuscular HGB Conc 33.1 g/dl (31.0-36.0); Mean Corpuscular Hemoglobin 28.3 pg (27.0-33.0); Mean Corpuscular Volume 85.5 fL (80.0-98.0); Mean Platelet Volume 9.3 fL (9.4-12.4); Monocytes Absolute Auto 0.3 X10*3/uL (0.1-1.2); Monocytes Percent Auto 4.5 % (2-11); Neutrophils Absolute Auto 3.9 x10*3/uL (2.0-8.3); Neutrophils Percent Auto 68.4 % (45-73); Platelet Count 228 X10*3/uL (160-400); Red Blood Count 4.95 X10*6/uL (4.60-5.80); Red Cell Distribution Width 14.1 % (11.0-16.0); White Blood Count 5.7 X10*3/uL (4.8-10.8)
[2023-07-29 12:00] LABS: Alanine Aminotransferase 25 U/L (0-40); Albumin Level 4.2 g/dL (3.5-5.0); Alkaline Phosphatase 64 U/L (39-117); Anion Gap 12 (12-20); Aspartate Amino Transferase 22 U/L (5-37); Bilirubin Total 0.5 mg/dL (0.0-1.0); Blood Urea Nitrogen 12 mg/dL (9-16); Calcium 9.3 mg/dL (8.4-10.2); Carbon Dioxide 25 mmol/L (22-29); Chloride 108 mmol/L (96-108); Creatinine Clr Calc Pharmacy 121.8; Estimated Glomerular Filt Rate > 60; Glucose Random 92 mg/dL (60-115); Potassium 4.2 mmol/L (3.3-5.1); Sodium 141 mmol/L (135-145); Total Protein 7.5 g/dL (6.5-8.0)
== END 2023-07-29 18:42 | disposition left against medical advice (07) ==
PROVIDERS: Emergency Provider Emergency Medicine; PCP Internal Medicine
DX: M79.642 Pain in left hand (principal); M79.641 Pain in right hand; M79.672 Pain in left foot; M79.671 Pain in right foot; F11.90 Opioid use, unspecified, uncomplicated
CPT/HCPCS: 36415; 80053; 85025; 99281; 99283

== ENCOUNTER 2023-11-12 14:26 | Emergency (ER) | payer OTHER, SELFPAY ==
--- NOTE | ~2023-11-12 | XR_ITS ---
EXAMINATION: XR HAND, BILATERAL CLINICAL INFORMATION: Swelling evaluate for osteomyelitis COMPARISON: None available. TECHNIQUE: 4 views of each hand FINDINGS: RIGHT: No acute visible fracture or dislocation. Joint space alignment. Soft tissue defect and swelling overlying the dorsum of the metacarpals without soft tissue gas or cortical thinning. LEFT: No acute visible fracture or dislocation. Joint spaces and alignment are maintained. Soft tissue swelling along the dorsum of the metacarpals. XR/XR hand wrist LT IMPRESSION: 1. No acute visible fracture or dislocation. 2. Soft tissue defect and swelling overlying the dorsum of the metacarpals without soft tissue gas or cortical thinning. 3. Soft tissue swelling along the dorsum of the metacarpals. 4. If high clinical concern for osteomyelitis consider further evaluation with MRI.
--- NOTE | ~2023-11-12 | XR_ITS ---
EXAMINATION: XR HAND, BILATERAL CLINICAL INFORMATION: Swelling evaluate for osteomyelitis COMPARISON: None available. TECHNIQUE: 4 views of each hand FINDINGS: RIGHT: No acute visible fracture or dislocation. Joint space alignment. Soft tissue defect and swelling overlying the dorsum of the metacarpals without soft tissue gas or cortical thinning. LEFT: No acute visible fracture or dislocation. Joint spaces and alignment are maintained. Soft tissue swelling along the dorsum of the metacarpals. XR/XR hand wrist RT IMPRESSION: 1. No acute visible fracture or dislocation. 2. Soft tissue defect and swelling overlying the dorsum of the metacarpals without soft tissue gas or cortical thinning. 3. Soft tissue swelling along the dorsum of the metacarpals. 4. If high clinical concern for osteomyelitis consider further evaluation with MRI.
[2023-11-12 14:38] VITALS: BP 127/82; PULSE 93; RESP 18; TEMP 36.7; O2SAT 98; BMI 32.7
--- NOTE | 2023-11-12 14:43 | ED.GENADULT ---
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 have necrotic dorsum of the right hand patient shooting around the area for last few days no fever no chills able to move his hand able to make a fist Related Data Home Medications ?Medication ?Instructions ?Recorded ?Confirmed methadone 10 mg/mL oral 2.5 mg PO Q6H 02/13/23 02/21/23 concentrate (Methadone Intensol) Previous Rx's ?Medication ?Instructions ?Recorded divalproex 500 mg tablet,delayed 1,500 mg (3 x 500 mg) PO .nightly 10/16/21 release (Depakote) 30 days #90 tabs furosemide 40 mg tablet (Lasix) 60 mg (1.5 x 40 mg) PO DAILY 30 10/16/21 days #45 tabs Allergies Allergy/AdvReac Type Severity Reaction Status Date / Time fish derived [fish] Allergy Rash Verified 11/12/23 14:39 Review of Systems Review of Systems: Yes all other systems are reviewed and are negative [facility] Past Medical History Medical History Large tonsils Surgical History History of placement of ear tubes Social History Social History Alcohol intake: current Alcohol intake frequency: does not drink Tobacco use type: Cigarette Cigarettes Per Day: 20 Substance Use Type: Heroin Advance Directives: No Advance Directives Information Provided: No Physical Exam ED Vital Signs: Vital Signs - 24 hr 11/12/23 14:38 Temperature 98.0 F Pulse Rate 93 Respiratory Rate 18 Blood Pressure 127/82 Pulse Oximetry 98 Oxygen Delivery Method Room Air BMI result Body Mass Index 32.7 Appearance: Alert. Oriented X3. No acute distress. Eyes: PERRLA, ENT: Pharynx normal. Oral Mucosa moist Neck: Normal inspection. Neck supple. CVS: Normal heart rate and rhythm. Pulses normal. Respiratory: No respiratory distress. Equal air entry bilateral, no wheezing/rales/rhonchi Abdomen: Soft and nontender. Bowel sounds are present, no mass palpable, no CVA tenderness Skin: Skin warm and dry. Normal skin color. Normal skin turgor. Extremities: No lower extremity edema. No calf tenderness IVDA track deal right dorsum of the hand black Ischcar and thickness of the skin worse than on the left dorsum of the neurovascular intact patient able to make fist and Neuro: Oriented X 3. No motor deficit. No sensory deficit.No cerebellar signs , cranial nerves II-XII intact Course Course Course Narrative: RME: 38 yold male presents to ED for bilateral hand infection after IV drug use injection in the hands. Bilateral hand swollen and red. Labs ordered. Spoke with shortness will bring patient to the ED. Medical Decision Making Medical Decision Making [facility] Narrative: Patient initially was communicating well suddenly became angry and upset after talking to his girlfriend and got up and left the emergency department we tried to convince the patient for antibiotics and local wound cleaning but patient left ED without even have the wound care or antibiotics Lab Data [facility] Lab Attestation statement: I reviewed the patient's lab results. 11/12/23 15:09 11/12/23 15:09 Labs: Lab Results 11/12/23 Range/Units 15:09 WBC 6.3 (4.8-10.8) X10*3/uL RBC 5.11 (4.60-5.80) X10*6/uL Hgb 14.4 (14.0-18.0) g/dl Hct 42.7 (42.0-52.0) % MCV 83.6 (80.0-98.0) fL MCH 28.2 (27.0-33.0) pg MCHC 33.7 (31.0-36.0) g/dl RDW 15.3 (11.0-16.0) % Plt Count 241 (160-400) X10*3/uL MPV 9.2 L (9.4-12.4) fL Immature Gran % (Auto) 0.2 (0.0-0.4) % Neut % (Auto) 53.3 (45-73) % Lymph % (Auto) 38.5 (20-40) % Cannon % (Auto) 5.1 (2-11) % Eos % (Auto) 2.4 (0-4) % Baso % (Auto) 0.5 (0-2) % Lymph # (Auto) 2.4 (1.2-4.9) X10*3/uL Cannon # (Auto) 0.3 (0.1-1.2) X10*3/uL Eos # (Auto) 0.2 (0.0-0.4) X10*3/uL Baso # (Auto) 0.0 (0.0-0.2) X10*3/uL Abs Immat Gran (auto) 0.01 (0.00-0.03) X10*3/uL Absolute Neuts (auto) 3.4 (2.0-8.3) x10*3/uL Absolute Nucleated RBC 0.000 (0.0-0.012) X10*3/uL Nucleated RBC % (auto) 0.0 (0.0-0.2) /100WBC ESR 6 (0-15) MM/HR Sodium 142 (135-145) mmol/L Potassium 3.4 (3.3-5.1) mmol/L Chloride 108 (96-108) mmol/L Carbon Dioxide 21 L (22-29) mmol/L Anion Gap 16 (12-20) BUN 12 (9-16) mg/dL Creatinine 0.87 (0.5-1.4) mg/dL Estim Creat Clear Calc 141.4 Estimated GFR > 60 Random Glucose 87 (60-115) mg/dL Lactic Acid 1.9 (0.5-2.0) mmol/L Calcium 9.2 (8.4-10.2) mg/dL Total Bilirubin 0.5 (0.0-1.0) mg/dL AST 30 (5-37) U/L ALT 18 (0-40) U/L Alkaline Phosphatase 89 (39-117) U/L C-Reactive Protein 3.36 H (< or = 0.50) mg/dL Total Protein 7.7 (6.5-8.0) g/dL Albumin 4.2 (3.5-5.0) g/dL Independent Interpretation I performed an independent interpretation of an: Plain X-Ray Radiology Impression Discussion of test interpretation with radiology: I have reviewed the radiologist's reading. Discharge Plan Discharge Clinical Impression: Infected hand Patient Disposition: Left Against Medical Advice Prescriptions: No Action furosemide [Lasix] 40 mg tablet 60 mg PO DAILY 30 Days Qty: 45 0RF divalproex [Depakote] 500 mg tablet,delayed release (DR/EC) 1,500 mg PO .nightly 30 Days Qty: 90 0RF methadone [Methadone Intensol] 10 mg/mL concentrate 2.5 mg PO Q6H Print Language: Martiniquais
[2023-11-12 15:14] LABS: MANUAL DIFF FLAG NO
[2023-11-12 15:18] LABS: Basophils Percent Auto 0.5 % (0-2); Eosinophils Absolute Auto 0.2 X10*3/uL (0.0-0.4); Eosinophils Percent Auto 2.4 % (0-4); Hematocrit 42.7 % (42.0-52.0); Hemoglobin 14.4 g/dl (14.0-18.0); Imm Gran Abs Auto 0.01 X10*3/uL (0.00-0.03); Imm Gran Pct Auto 0.2 % (0.0-0.4); Lymphocytes Absolute Auto 2.4 X10*3/uL (1.2-4.9); Lymphocytes Percent Auto 38.5 % (20-40); Mean Corpuscular HGB Conc 33.7 g/dl (31.0-36.0); Mean Corpuscular Hemoglobin 28.2 pg (27.0-33.0); Mean Corpuscular Volume 83.6 fL (80.0-98.0); Mean Platelet Volume 9.2 fL (9.4-12.4); Monocytes Absolute Auto 0.3 X10*3/uL (0.1-1.2); Monocytes Percent Auto 5.1 % (2-11); Neutrophils Absolute Auto 3.4 x10*3/uL (2.0-8.3); Neutrophils Percent Auto 53.3 % (45-73); Platelet Count 241 X10*3/uL (160-400); Red Blood Count 5.11 X10*6/uL (4.60-5.80); Red Cell Distribution Width 15.3 % (11.0-16.0); White Blood Count 6.3 X10*3/uL (4.8-10.8)
[2023-11-12 15:34] LABS: Lactic Acid 1.9 mmol/L (0.5-2.0)
[2023-11-12 15:37] LABS: Alanine Aminotransferase 18 U/L (0-40); Albumin Level 4.2 g/dL (3.5-5.0); Alkaline Phosphatase 89 U/L (39-117); Anion Gap 16 (12-20); Aspartate Amino Transferase 30 U/L (5-37); Bilirubin Total 0.5 mg/dL (0.0-1.0); Blood Urea Nitrogen 12 mg/dL (9-16); C Reactive Protein 3.36 mg/dL (< or = 0.50); Calcium 9.2 mg/dL (8.4-10.2); Carbon Dioxide 21 mmol/L (22-29); Chloride 108 mmol/L (96-108); Creatinine Clr Calc Pharmacy 141.4; Estimated Glomerular Filt Rate > 60; Glucose Random 87 mg/dL (60-115); Potassium 3.4 mmol/L (3.3-5.1); Sodium 142 mmol/L (135-145); Total Protein 7.7 g/dL (6.5-8.0)
[2023-11-12 16:23] LABS: Erythrocyte Sedimentation Rate 6 MM/HR (0-15)
--- NOTE | 2023-11-12 17:55 | PC.NURSE ---
Patient did not want to receive any care from the provider, he stated that the provider was being disrespected and left this ED.
== END 2023-11-12 18:00 | disposition left against medical advice (07) ==
PROVIDERS: Physician Assistant; Emergency Provider Internal Medicine
DX: L08.9 Local infection of the skin and subcutaneous tissue, unspecified (principal); F14.90 Cocaine use, unspecified, uncomplicated; F11.90 Opioid use, unspecified, uncomplicated
CPT/HCPCS: 36415; 73110; 73130; 80053; 83605; 85025; 85652; 86140; 87040; 99281; 99283

== ENCOUNTER 2023-11-30 22:13 | Emergency (ER) | payer OTHER, SELFPAY ==
--- NOTE | ~2023-11-30 | XR_ITS ---
EXAMINATION: XR CHEST CLINICAL INFORMATION: Fever. COMPARISON: 06/07/2011. TECHNIQUE: Frontal view of the chest was obtained. FINDINGS: The cardiomediastinal silhouette is within normal limits. There is lingular subsegmental atelectasis or scarring. The lungs are otherwise clear. There are no significant pleural effusions. The bony structures and soft tissues are unremarkable. XR/XR chest 1V IMPRESSION: Lingular subsegmental atelectasis or scarring. No evidence for active cardiopulmonary disease.
--- NOTE | ~2023-11-30 | CT_ITS ---
EXAMINATION: CT HEAD WITHOUT CONTRAST CLINICAL INFORMATION: Altered mental status. COMPARISON: None available. TECHNIQUE: Contiguous axial imaging was performed from the skull base to vertex without intravenous administration of contrast. This CT examination was performed using dose optimization techniques as appropriate, variously including the following: *Automated exposure control *Adjustment of mA and/or kV according to patient size (this includes techniques or standardized protocols for targeted exams where dose is matched to indication/reason for exam; i.e. extremities or head) *Use of iterative reconstruction technique DLP: 711 mGy-cm FINDINGS: The lateral, third and fourth ventricles are normally outlined. The cortical sulci and basal cisterns are normally outlined as well. There is no acute territorial defect, hemorrhage or midline shift. The extra-axial spaces are unremarkable. Calvarium: Intact. Maxillofacial sinuses and mastoids: There is ethmoid sinus mucosal thickening. The remaining maxillofacial sinuses and mastoids are clear. CT/CT head/brain wo IV con IMPRESSION: No acute intracranial pathology.
--- NOTE | ~2023-11-30 | XR_ITS ---
EXAMINATION: XR HAND, LEFT CLINICAL INFORMATION: Open wound. Concern for foreign body. COMPARISON: None available. TECHNIQUE: PA, lateral, and oblique views of the left hand. FINDINGS: The bone mineralization is normal. The joint spaces are maintained. There is no fracture or bony erosive change. There is significant soft tissue swelling along the dorsum of the hand with a small defect. XR/XR hand LT 2V IMPRESSION: Soft tissue swelling with a small defect along the dorsum of the hand. No radiopaque foreign body is seen.
--- NOTE | ~2023-11-30 | XR_ITS ---
EXAMINATION: XR HAND, RIGHT CLINICAL INFORMATION: Open wounds. Concern for foreign body. COMPARISON: None available. TECHNIQUE: PA, lateral, and oblique views of the right hand. FINDINGS: The bone mineralization is normal. The joint spaces are maintained. There is significant soft tissue swelling along the dorsum of the hand with a soft tissue defect. No radiopaque foreign body seen. XR/XR hand RT 2V IMPRESSION: Soft tissue swelling along the dorsum of the hand with a soft tissue defect. No radiopaque foreign body seen.
[2023-11-30 22:27] VITALS: BP 126/71; PULSE 97; RESP 12; TEMP 36.9; O2SAT 95; BMI 33.9
--- NOTE | 2023-11-30 22:29 | ECG_ITS ---
Test Reason : AMS Blood Pressure : / mmHG Vent. Rate : 086 BPM Atrial Rate : 086 BPM P-R Int : 130 ms QRS Dur : 092 ms QT Int : 416 ms P-R-T Axes : 058 041 055 degrees QTc Int : 497 ms Normal sinus rhythm Prolonged QT Abnormal ECG When compared with ECG of 16-OCT-2021 18:46, No significant change was found Referred By: Carol Leos Electronically Signed By:LISA LIRA MD
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
[2023-11-30] MEDS: Piperacillin Sodium/Tazobactam 4.5 GM in 0.9 % Sodium Chloride 100 ML IV (23:08)
[2023-11-30] MEDS: 0.9 % Sodium Chloride 2,500 ML 999 ML IVCONT (23:09)
--- NOTE | 2023-11-30 23:09 | PC.NURSE ---
Ultrasound IV obtained on patient at this time, labs drawn off of new obtained IV.
[2023-11-30 23:10] LABS: Basophils Percent Auto 0.3 % (0-2); Eosinophils Absolute Auto 0.1 X10*3/uL (0.0-0.4); Eosinophils Percent Auto 2.3 % (0-4); Hematocrit 37.2 % (42.0-52.0); Hemoglobin 12.6 g/dl (14.0-18.0); Imm Gran Abs Auto 0.03 X10*3/uL (0.00-0.03); Imm Gran Pct Auto 0.5 % (0.0-0.4); Lymphocytes Absolute Auto 2.2 X10*3/uL (1.2-4.9); Lymphocytes Percent Auto 39.2 % (20-40); MANUAL DIFF FLAG NO; Mean Corpuscular HGB Conc 33.9 g/dl (31.0-36.0); Mean Corpuscular Hemoglobin 28.1 pg (27.0-33.0); Mean Platelet Volume 8.7 fL (9.4-12.4); Monocytes Absolute Auto 0.3 X10*3/uL (0.1-1.2); Monocytes Percent Auto 5.8 % (2-11); Neutrophils Percent Auto 51.9 % (45-73); Platelet Count 273 X10*3/uL (160-400); Red Blood Count 4.48 X10*6/uL (4.60-5.80); Red Cell Distribution Width 15.9 % (11.0-16.0); White Blood Count 5.7 X10*3/uL (4.8-10.8)
--- NOTE | 2023-11-30 23:10 | PC.NURSE ---
assumed care of pt at 2308. labs obtained.
[2023-11-30 23:19] LABS: Lactic Acid 1.2 mmol/L (0.5-2.0)
[2023-11-30 23:21] LABS: Ethanol 29 mg/dL
[2023-11-30 23:23] LABS: INTERNATIONAL NORM RATIO 1.1 (0.9-1.1)
[2023-11-30 23:25] LABS: Alanine Aminotransferase 25 U/L (0-40); Albumin Level 4.3 g/dL (3.5-5.0); Alkaline Phosphatase 72 U/L (39-117); Anion Gap 14 (12-20); Aspartate Amino Transferase 30 U/L (5-37); Bilirubin Direct 0.1 mg/dL (0.0-0.5); Bilirubin Total 0.3 mg/dL (0.0-1.0); Blood Urea Nitrogen 16 mg/dL (9-16); Calcium 8.9 mg/dL (8.4-10.2); Carbon Dioxide 22 mmol/L (22-29); Chloride 108 mmol/L (96-108); Creatinine Clr Calc Pharmacy 120.3; Estimated Glomerular Filt Rate > 60; Glucose Random 83 mg/dL (60-115); Potassium 4.1 mmol/L (3.3-5.1); Sodium 140 mmol/L (135-145); Total Protein 7.6 g/dL (6.5-8.0)
[2023-11-30 23:32] LABS: Troponin-I High Sensitivity < 2.7 ng/L (<3.5-35.0)
[2023-11-30] MEDS: vancomycin/NS 2,000 MG/500 ML PLAST..BAG 250 MG IV (23:45)
[2023-12-01 00:43] LABS: IDNOW Serial# 6674DD1D; Influenza A Negative (Negative); Influenza B2 Negative (Negative)
[2023-12-01 01:36] LABS: Appearance Urine Clear; Color Urine Yellow; Glucose Urine UA Negative (Negative); Leukocyte Esterase Urine Negative (Negative); Nitrite Urine Negative (Negative); PH 5.5 (5.0-9.0); Urine Blood Negative (Negative); Urine Ketones Negative (Negative); Urine Protein Negative (Neg-Trace)
[2023-12-01 01:42] LABS: Amphetamine Screen Urine Not Detected (Not Detect); Barbiturates, Urine POSITIVE (Not Detect); Benzodiazepines Screen Urine POSITIVE (Not Detect); Buprenorphine Scr Not Detected (Not Detect); Cannabinoid Screen Urine Not Detected (Not Detect); Cocaine Screen Urine POSITIVE (Not Detect); Fentanyl, urine POSITIVE (Not Detect); Methadone Screen, Urine Positive (Not Detect); Opiate Screen Urine POSITIVE (Not Detect); Oxycodone Screen Urine Not Detected (Not Detect); Phencyclidine Screen Urine Not Detected (Not Detect)
[2023-12-01 02:00] VITALS: BP 107/68; PULSE 76; RESP 13; TEMP 36.2; O2SAT 99
[2023-12-01 02:52] VITALS: BP 102/69; PULSE 71; RESP 13
[2023-12-01 03:30] VITALS: BP 111/64; PULSE 73
[2023-12-01 03:59] VITALS: BP 108/68; PULSE 70; RESP 10; TEMP 36.9; O2SAT 96
[2023-12-01 06:00] VITALS: BP 114/60; PULSE 77; RESP 20; TEMP 36.6; O2SAT 93
[2023-12-01 07:18] VITALS: BP 114/60; PULSE 77; RESP 20; TEMP 36.6; O2SAT 93
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
== END 2023-12-01 07:19 | disposition home or self-care (01) ==
PROVIDERS: Emergency Provider Emergency Medicine
DX: L03.114 Cellulitis of left upper limb (principal); L03.113 Cellulitis of right upper limb; F19.90 Other psychoactive substance use, unspecified, uncomplicated
CPT/HCPCS: 36415; 70450; 71045; 73120; 80048; 80076; 80307; 81003; 83605; 83735; 84484; 85025; 85610; 87040; 87502; 93005; 96365; 96366; 96367; 99285; J2543; J3370

== ENCOUNTER → 2023-11-30 22:29 | Outpatient (BNV) | payer OTHER, SELFPAY | PROVIDERS: Emergency Provider Emergency Medicine; Visit Provider Internal Medicine Cardiovascular Disease | DX: I45.81 Long QT syndrome (principal) | CPT/HCPCS: 93010 ==

== ENCOUNTER → 2023-11-30 22:49 | Outpatient (BNV) | payer OTHER, SELFPAY | PROVIDERS: Emergency Provider Emergency Medicine; Visit Provider Internal Medicine | DX: F19.90 Other psychoactive substance use, unspecified, uncomplicated (principal); L98.492 Non-pressure chronic ulcer of skin of other sites with fat layer exposed | CPT/HCPCS: 99283 ==